=== PATIENT | male | born 1960 | race Caucasian/White ===

== ENCOUNTER 2020-02-23 12:44 | Outpatient (RCR) | payer OTHER, SELFPAY | END 2020-06-14 15:14 | disposition home or self-care (01) | LOC: HO.WCC 12:44 | PROVIDERS: Visit Provider Surgery | DX: E11.621 Type 2 diabetes mellitus with foot ulcer (principal); E11.52 Type 2 diabetes mellitus with diabetic peripheral angiopathy with gangrene; L97.523 Non-pressure chronic ulcer of other part of left foot with necrosis of muscle; M86.272 Subacute osteomyelitis, left ankle and foot; F17.210 Nicotine dependence, cigarettes, uncomplicated; Z71.6 Tobacco abuse counseling; Z79.2 Long term (current) use of antibiotics | CPT/HCPCS: 11042; 87071; 87077; 87147; 87186; 87205; 99212; 99213; 99214 ==

== ENCOUNTER 2020-03-06 16:14 | Outpatient (REF) | payer OTHER, SELFPAY ==
--- NOTE | 2020-03-06 16:36 | XR_ITS ---
EXAMINATION: XR FOOT, LEFT CLINICAL INFORMATION: Question lateral bony involvement COMPARISON: None TECHNIQUE: AP, lateral, and oblique views of the left foot. FINDINGS: There is no evidence of acute fracture or dislocation of the left foot. Bandages is seen overlying the region of the fifth metatarsophalangeal joint. No definite cortical erosion is appreciated. Joint spaces maintained. No gas within the soft tissues. IMPRESSION: No definite bony abnormality of the left foot.
[2020-03-06 16:50] LABS: MANUAL DIFF FLAG NO
[2020-03-06 16:55] LABS: Basophils Percent Auto 0.4 % (0-2); Eosinophils Percent Auto 0.3 % (0-4); Hematocrit 45.6 % (42-52); Hemoglobin 15.8 g/dl (14.0-18.0); Imm Gran Abs Auto 0.05 X10*3/uL (0.00-0.03); Imm Gran Pct Auto 0.4 % (0.0-0.4); Lymphocytes Absolute Auto 1.5 X10*3/uL (1.2-4.9); Lymphocytes Percent Auto 13.4 % (20-40); Mean Corpuscular HGB Conc 34.6 g/dl (31.0-36.0); Mean Corpuscular Hemoglobin 33.5 pg (27.0-33.0); Mean Corpuscular Volume 96.8 fL (80-98); Mean Platelet Volume 10.9 fL (9.4-12.4); Monocytes Absolute Auto 0.9 X10*3/uL (0.1-1.2); Monocytes Percent Auto 7.8 % (2-11); Neutrophils Absolute Auto 8.8 X10*3/uL (2.0-8.3); Neutrophils Percent Auto 77.7 % (45-73); Platelet Count 150 X10*3/uL (160-400); Red Blood Count 4.71 X10*6/uL (4.60-5.80); White Blood Count 11.4 X10*3/uL (4.8-10.8)
[2020-03-06 17:07] LABS: Estimated Average Glucose 197 mg/dL; Hemoglobin A1c % 8.5 %
== END 2020-03-06 16:15 | disposition home or self-care (01) ==
LOC: HO.LAB 16:14
PROVIDERS: Visit Provider Physician Assistant Surgical
DX: E11.621 Type 2 diabetes mellitus with foot ulcer (principal); L97.529 Non-pressure chronic ulcer of other part of left foot with unspecified severity
CPT/HCPCS: 36415; 73630; 83036; 85025; 87071; 87147; 87186; 87205

== ENCOUNTER 2020-04-19 14:18 | Outpatient (REF) | payer OTHER, SELFPAY ==
--- NOTE | 2020-04-19 15:01 | MR_ITS ---
EXAMINATION: MR FOOT WITHOUT AND WITH CONTRAST, LEFT CLINICAL INFORMATION: Non-healing diabetic foot ulcer, ? Osteomyelitis COMPARISON: 03/06/2020 (radiographs) TECHNIQUE: Multiplanar MR imaging was obtained through the left foot on a 1.5 Marielle magnet before and after intravenous administration of 10 mL of Gadavist intravenous contrast material. FINDINGS: At the lateral margin of the 5th metatarsal head, the marrow is edematous with lateral endosteal enhancement and loss of T1 signal (images 26/44 of series 7 and series 9), consistent with osteomyelitis. A small overlying wound is present in the overlying soft tissues with a skin defect, soft tissue swelling, and peripheral enhancement extending to the depth of bone. No fluid collections are identified. There is also edema signal and enhancement at the base of the 5th toe proximal phalanx without significant loss of T1 signal intensity, likely reactive in nature. Very early osteomyelitis cannot be completely excluded. No significant joint effusion of the 5th MTP joint. No significant findings of septic arthritis. No additional areas of osteomyelitis are identified in the foot. 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 Abnormal increased T2 signal is present within the intrinsic foot musculature with associated fatty replacement as can be seen with neuropathy related to underlying diabetes. Tendons appear intact without tears. There is tenosynovitis of the flexor hallucis longus at the level of the mass knot of [place] Angel. MR/MR foot LT wo/w con IMPRESSION: A soft tissue wound at the lateral aspect of the forefoot with underlying osteomyelitis at the 5th metatarsal head. Signal changes within the 5th toe proximal phalangeal base are likely reactive in nature, though very early osteomyelitis in this region is possible as well. No abscess.
[2020-04-19 15:06] LABS: Blood Urea Nitrogen 9 mg/dL (9-16); Estimated Glomerular Filt Rate > 60
== END 2020-04-19 14:19 | disposition home or self-care (01) ==
LOC: HO.MRI 14:18
PROVIDERS: Visit Provider Surgery
DX: E11.621 Type 2 diabetes mellitus with foot ulcer (principal); L97.529 Non-pressure chronic ulcer of other part of left foot with unspecified severity
CPT/HCPCS: 73720; 82565; 84520; A9585

== ENCOUNTER → 2020-05-01 11:14 | Outpatient (BNVA) | payer OTHER, SELFPAY | PROVIDERS: Visit Provider Internal Medicine | DX: Z76.89 Persons encountering health services in other specified circumstances (principal) ==

== ENCOUNTER → 2020-05-15 13:09 | Outpatient (BNVA) | payer OTHER, SELFPAY | PROVIDERS: Visit Provider Internal Medicine | DX: Z76.89 Persons encountering health services in other specified circumstances (principal) ==

== ENCOUNTER 2020-06-07 17:57 | Inpatient (IN) | payer OTHER, SELFPAY ==
[2020-06-07 18:00] VITALS: BP 132/66; PULSE 100; RESP 18; TEMP 37.5; O2SAT 95
--- NOTE | 2020-06-07 19:22 | XR_ITS ---
EXAMINATION: XR FOOT, LEFT CLINICAL INFORMATION: Evaluate for osteomyelitis COMPARISON: 03/06/2020 TECHNIQUE: AP, lateral, and oblique views of the left foot. FINDINGS: There is loss of bony integrity with erosion involving the distal fifth metatarsal and likely adjacent phalanx. Certainly osteomyelitis needs to be considered here. There is an overlying skin ulceration likely. No other convincing area of bony erosion. XR/XR foot LT min 3V IMPRESSION: Bone loss of the distal fifth metatarsal and adjacent phalanx. May well be consistent with osteomyelitis given the history. Recommend MR to fully evaluate
--- NOTE | 2020-06-07 19:38 | ED_ITS ---
HPI - General Adult General Chief complaint: Wound/Laceration <Felisha Kessler NP - Last Filed: 06/07/20 22:36> Stated complaint: foot pain, no known injury <Felisha Kessler NP - Last Filed: 06/07/20 22:36> Time Seen by Provider: 06/07/20 19:15 <Felisha Kessler NP - Last Filed: 06/07/20 22:36> Source: patient <Felisha Kessler NP - Last Filed: 06/07/20 22:36> Mode of arrival: ambulatory <Felisha Kessler NP - Last Filed: 06/07/20 22:36> Limitations: no limitations <Felisha Kessler NP - Last Filed: 06/07/20 22:36> History of Present Illness HPI narrative: 59-year-old male with a past medical history of xoo-stbvzzo-otlzfyett diabetes, chronic left wound infection here with left foot redness, swelling and wound noted. Patient tells me he has chronic wound on the left foot and has had osteomyelitis noted on his last MRI 04/19/2020. He completed a 2 week course of linezolid the 1st week of May. He tells me over the last 2 weeks he has had worsening pain, swelling and redness. Tells me [facility] and referred to the emergency department for IV antibiotics and admission. No fevers or chills. <Felisha Kessler NP - Last Filed: 06/07/20 22:36> Related Data Home medications: Home Medications Medication Instructions Recorded Confirmed clopidogrel 75 mg tablet 75 mg PO DAILY 05/15/20 06/07/20 aspirin 81 mg PO BEDTIME 06/07/20 06/07/20 metformin 500 mg PO BID 06/07/20 06/07/20 Previous Rx's Medication Instructions Recorded amoxicillin-pot clavulanate 875 mg PO Q12H #20 tab 06/14/20 blood sugar diagnostic #100 ea 06/14/20 doxycycline hyclate 100 mg PO Q12H #20 tab 06/14/20 insulin glargine [Lantus U-100 12 unit SUBCUT BEDTIME 30 Days #30 06/14/20 Insulin] ml insulin lispro See Protocol SUBCUT USEASDIRECTD 06/14/20 #10 ml insulin lispro [Humalog U-100 See Protocol SUBCUT QIDACHS 30 06/14/20 Insulin] Days ml insulin syr/ndl U100 half mariann #100 ea 06/14/20 nicotine 1 patch TRANSDERMAL DAILY #14 ea 06/14/20 <Felisha Kessler NP - Last Filed: 06/07/20 22:36> Allergies/adverse reactions: Allergies Allergy/AdvReac Type Severity Reaction Status Date / Time No Known Allergies Allergy Verified 06/07/20 19:22 <Felisha Kessler NP - Last Filed: 06/07/20 22:36> Review of Systems Review of Systems: Yes all other systems are reviewed and are negative <Felisha Kessler NP - Last Filed: 06/07/20 22:36> Constitutional: Constitutional: Reports no additional constitutional compl aints, Denies body ache(s), Denies chills, Denies fever(s), Denies headache(s) and Denies weakness <Felisha Kessler NP - Last Filed: 06/07/20 22:36> Eyes: Eyes: Reports no additional eye complaints and Denies change in vision <Felisha Kessler NP - Last Filed: 06/07/20 22:36> ENT: Reports system reviewed and no additional complaints, except as documented, Denies dizziness, Denies headache(s), Denies nasal congestion, Denies nasal discharge and Denies neck pain <Felisha Kessler NP - Last Filed: 06/07/20 22:36> Cardiovascular: Cardiovascular: Reports no additional cardiovascular complaints, Denies chest pain, Denies leg edema and Denies dyspnea <Felisha Kessler NP - Last Filed: 06/07/20 22:36> Respiratory: Respiratory: Reports no additional respiratory complaints, Denies cough and Denies dyspnea <Felisha Kessler NP - Last Filed: 06/07/20 22:36> Gastrointestinal: Gastrointestinal: Reports no additional gastrointestinal complaints, Denies abdominal pain, Denies diarrhea, Denies nausea and Denies vomiting <BRITTANY Mahmood Last Filed: 06/07/20 22:36> Genitourinary: Genitourinary: Denies urinary incontinence <Felisha Kessler NP - Last Filed: 06/07/20 22:36> Musculoskeletal: Musculoskeletal: Reports no additional musculoskeletal complaints, Denies back pain, Reports arthralgias, Denies joint swelling, Denies neck pain, Denies numbness and Denies tingling <Felisha Kessler NP - Last Filed: 06/07/20 22:36> Integumentary/Breasts: Skin/Breast: Reports system reviewed and no additional complaints, except as docu, Reports swelling, Reports erythema, Denies rash and Reports skin swelling <Felisha Kessler NP - Last Filed: 06/07/20 22:36> Neurologic: Reports system reviewed and no additional complaints, except as documented, Denies Abnormal speech present, Denies dizziness, Denies head ache(s), Denies numbness, Denies tingling and Denies weakness <Felisha Kessler NP - Last Filed: 06/07/20 22:36> [facility] Past Medical History Attestation statement: The following information was validated with the patient. <Felisha Kessler NP - Last Filed: 06/07/20 22:36> Source: old records reviewed and nursing notes reviewed <Felisha Kessler NP - Last Filed: 06/07/20 22:36> Medical History: Medical History (Updated 06/14/20 @ 11:56 by Guy Barboza MD) Diabetes mellitus type 2 in obese Diabetic foot infection <Felisha Kessler NP - Last Filed: 06/07/20 22:36> Social History Social History: Social History Household Members: Spouse and Children Housing: Apartment Smoking Status: Current every day smoker Tobacco Type: Cigarette Cigarettes Per Day: 10 Years Smoked: 40 Second Hand Smoke Exposure: Yes service: No Current occupational status: employed <Felisha Kessler NP - Last Filed: 06/07/20 22:36> Physical Exam Vital Signs: Vital Signs: Last Vital Signs Temp 97.9 F 06/14/20 11:56 Pulse 94 06/14/20 11:56 Resp 18 06/14/20 11:56 BP 149/68 H 06/14/20 11:56 Pulse Ox 100 06/14/20 11:56 <Felisha Kessler NP - Last Filed: 06/07/20 22:36> Vital Signs: Last Vital Signs Temp 97.9 F 06/14/20 11:56 Pulse 94 06/14/20 11:56 Resp 18 06/14/20 11:56 BP 149/68 H 06/14/20 11:56 Pulse Ox 100 06/14/20 11:56 <Adria Calvo MD - Last Filed: 06/20/20 07:24> Const: General: cooperative, healthy appearing, comfortable and no acute distress <Felisha Kessler NP - Last Filed: 06/07/20 22:36> Orientation/consciousness: patient oriented x3 <Felisha Kessler NP - Last Filed: 06/07/20 22:36> Limitations: no limitations <Felisha Kessler NP - Last Filed: 06/07/20 22:36> HENMT: Head: Yes normal to inspection <Felisha Kessler NP - Last Filed: 06/07/20 22:36> Ears: hearing grossly normal bilaterally <Felisha Kessler NP - Last Filed: 06/07/20 22:36> General nose exam: Normal external nose present <Felisha Kessler NP - Last Filed: 06/07/20 22:36> Face and sinus: Yes normal facial exam <Felisha Kessler NP - Last Filed: 06/07/20 22:36> Mouth: Normal oral and palatal mucosa present <Felisha Kessler NP - Last Filed: 06/07/20 22:36> Throat: Yes posterior oropharynx normal <Felisha Kessler NP - Last Filed: 06/07/20 22:36> Eyes: General: appearance normal, both eyes and all related structures <Felisha Kessler NP - Last Filed: 06/07/20 22:36> Pupils: Equal, round and reactive pupils present <Felisha Kessler NP - Last Filed: 06/07/20 22:36> Neck: Neck: Yes normal visual inspection <Felisha Kessler NP - Last Filed: 06/07/20 22:36> Chest: Chest palpation & inspection: normal inspection of the chest <Felisha Kessler NP - Last Filed: 06/07/20 22:36> Resp: Effort & Inspection: normal respiratory effort <Felisha Kessler NP - Last Filed: 06/07/20 22:36> Auscultation: clear to auscultation bilaterally <Felisha Kessler SEC REPORTING CONSULTANT - Last Filed: 06/07/20 22:36> Cardio: Rate: regular rate <Felisha Kessler NP - Last Filed: 06/07/20 22:36> Rhythm: regular rhythm <Felisha Kessler NP - Last Filed: 06/07/20 22:36> Peripheral pulses: Peripheral pulses 2+ throughout <Felisha Kessler NP - Last Filed: 06/07/20 22:36> GI: Inspection: Yes normal to inspection <Felisha Kessler NP - Last Filed: 06/07/20 22:36> Palpation (GI): Soft to palpation and nontender <Felisha Kessler NP - Last Filed: 06/07/20 22:36> Auscultation: normal bowel sounds <Felisha Kessler NP - Last Filed: 06/07/20 22:36> Back/Spine/Pelvis: Thoracic/Lumbar Spine: thoracic and lumbar spine normal to inspection <Felisha Kessler NP - Last Filed: 06/07/20 22:36> Skin: General skin exam: no rashes or lesions noted <Felisha Kessler NP - Last Filed: 06/07/20 22:36> Neuro: General: patient oriented x3, no focal motor deficits and normal sensation to monofilament <Felisha Kessler NP - Last Filed: 06/07/20 22:36> Cranial nerves: Yes Equal, round and reactive pupils present <Felisha Kessler NP - Last Filed: 06/07/20 22:36> Cognition (Neuro): normal cognition <BRITTANY Mahmood Last Filed: 06/07/20 22:36> Speech: No Abnormal speech present <Felisha Kessler NP - Last Filed: 06/07/20 22:36> Gait exam (Neuro): Normal gait present <Felisha Kessler NP - Last Filed: 06/07/20 22:36> Motor exam (neuro): 5/5 motor strength present throughout <Felisha Kessler NP - Last Filed: 06/07/20 22:36> Extrem: Other: To the base of the left 5th toe there is an open area. The wound bed is covered with eschar and has areas of slough. There is erythema extending over the dorsal aspect of the mid foot with swelling and tenderness. Palpable distal pulses. Patient is able to flex and extend the foot with no difficulty. <Felisha Kessler NP - Last Filed: 06/07/20 22:36> General: Yes normal to inspection <Felisha Kessler NP - Last Filed: 06/07/20 22:36> Course Course Course Narrative: 59-year-old male here with left foot wound now with redness and swelling and pain worsening over the last 2 weeks. Not currently on antibiotics. Seen at wound care today and referred to the ER for IV antibiotics and admission. Will check labs including blood cultures and lactic acid, COVID test, x-ray. 08- 04/27/20-1014 Organism 1 Enterobacter cloacae complex Quantity 4+ Organism 2 Methicillin Res Staph Aureus Quantity 4+ Organism 3 Enterococcus faecalis Quantity 3+ X-ray concerning for osteomyelitis. Previous wound culture sensitive to levaquin. At this time infection is suspected. Antibiotics ordered. Patient will need admission. 2129-discussed patient with Dr. Cano who accepted admission. <Felisha Kessler NP - Last Filed: 06/07/20 22:36> I have discussed the case and management with the [facility] <Adria Calvo MD - Last Filed: 06/20/20 07:24> Medical Decision Making Medical Records Medical records reviewed: Yes I reviewed the patient's medical records. <Felisha Kessler NP - Last Filed: 06/07/20 22:36> Lab Data Lab results reviewed: Yes I reviewed the patient's lab results. <Felisha Kessler NP - Last Filed: 06/07/20 22:36> Result diagrams: : 06/12/20 10:27 06/11/20 05:45 <Felisha Kessler NP - Last Filed: 06/07/20 22:36> Labs: Lab Results 06/07/20 06/07/20 06/07/20 Range/Units 20:15 20:15 20:16 WBC 8.2 (4.8-10.8) X10*3/uL RBC 3.78 L (4.60-5.80) X10*6/uL Hgb 12.7 L (14.0-18.0) g/dl Hct 36.7 L (42-52) % MCV 97.1 (80-98) fL MCH 33.6 H (27.0-33.0) pg MCHC 34.6 (31.0-36.0) g/dl RDW 15.5 (11.0-16.0) % Plt Count 193 D (160-400) X10*3/uL MPV 10.0 (9.4-12.4) fL Immature Gran % (Auto) 0.4 (0.0-0.4) % Neut % (Auto) 67.6 (45-73) % Lymph % (Auto) 20.1 (20-40) % [place] % (Auto) 11.0 (2-11) % Eos % (Auto) 0.7 (0-4) % Baso % (Auto) 0.2 (0-2) % Lymph # (Auto) 1.7 (1.2-4.9) X10*3/uL [place] # (Auto) 0.9 (0.1-1.2) X10*3/uL Eos # (Auto) 0.1 (0.0-0.4) X10*3/uL Baso # (Auto) 0.0 (0.0-0.2) X10*3/uL Abs Immat Gran (auto) 0.03 (0.00-0.03) X10*3/uL Absolute Neuts (auto) 5.5 (2.0-8.3) X10*3/uL Absolute Nucleated RBC 0.000 (0.0-0.012) X10*3/uL Nucleated RBC % (auto) 0.0 (0.0-0.2) /100WBC ESR 21 H (0-15) MM/HR Sodium (135-145) mmol/L Potassium (3.3-5.1) mmol/l Chloride (96-108) mmol/L Carbon Dioxide (22-29) mmol/L Anion Gap (12-20) BUN (9-16) mg/dL Creatinine (0.5-1.4) mg/dL Estim Creat Clear Calc Estimated GFR Random Glucose (60-115) mg/dL Lactic Acid 0.8 (0.5-2.0) mmol/L Calcium (8.4-10.2) mg/dL C-Reactive Protein (< or = 0.50) mg/dL COVID-19 (SAM) (Negative) COVID-19 Clin Com 06/07/20 06/07/20 Range/Units 20:16 20:16 WBC (4.8-10.8) X10*3/uL RBC (4.60-5.80) X10*6/uL Hgb (14.0-18.0) g/dl Hct (42-52) % MCV (80-98) fL MCH (27.0-33.0) pg MCHC (31.0-36.0) g/dl RDW (11.0-16.0) % Plt Count (160-400) X10*3/uL MPV (9.4-12.4) fL Immature Gran % (Auto) (0.0-0.4) % Neut % (Auto) (45-73) % Lymph % (Auto) (20-40) % [place] % (Auto) (2-11) % Eos % (Auto) (0-4) % Baso % (Auto) (0-2) % Lymph # (Auto) (1.2-4.9) X10*3/uL [place] # (Auto) (0.1-1.2) X10*3/uL Eos # (Auto) (0.0-0.4) X10*3/uL Baso # (Auto) (0.0-0.2) X10*3/uL Abs Immat Gran (auto) (0.00-0.03) X10*3/uL Absolute Neuts (auto) (2.0-8.3) X10*3/uL Absolute Nucleated RBC (0.0-0.012) X10*3/uL Nucleated RBC % (auto) (0.0-0.2) /100WBC ESR (0-15) MM/HR Sodium 134 L (135-145) mmol/L Potassium 4.4 (3.3-5.1) mmol/l Chloride 98 (96-108) mmol/L Carbon Dioxide 28 (22-29) mmol/L Anion Gap 12 (12-20) BUN 14 D (9-16) mg/dL Creatinine 0.84 (0.5-1.4) mg/dL Estim Creat Clear Calc TNP Estimated GFR > 60 Random Glucose 203 H (60-115) mg/dL Lactic Acid (0.5-2.0) mmol/L Calcium 8.4 (8.4-10.2) mg/dL C-Reactive Protein 3.45 H (< or = 0.50) mg/dL COVID-19 (SAM) Negative (Negative) COVID-19 Clin Com See Note <Felisha Kessler, SEC REPORTING CONSULTANT - Last Filed: 06/07/20 22:36> Lab Results 06/07/20 06/07/20 06/07/20 Range/Units 20:15 20:15 20:16 WBC 8.2 (4.8-10.8) X10*3/uL RBC 3.78 L (4.60-5.80) X10*6/uL Hgb 12.7 L (14.0-18.0) g/dl Hct 36.7 L (42-52) % MCV 97.1 (80-98) fL MCH 33.6 H (27.0-33.0) pg MCHC 34.6 (31.0-36.0) g/dl RDW 15.5 (11.0-16.0) % Plt Count 193 D (160-400) X10*3/uL MPV 10.0 (9.4-12.4) fL Immature Gran % (Auto) 0.4 (0.0-0.4) % Neut % (Auto) 67.6 (45-73) % Lymph % (Auto) 20.1 (20-40) % [place] % (Auto) 11.0 (2-11) % Eos % (Auto) 0.7 (0-4) % Baso % (Auto) 0.2 (0-2) % Lymph # (Auto) 1.7 (1.2-4.9) X10*3/uL [place] # (Auto) 0.9 (0.1-1.2) X10*3/uL Eos # (Auto) 0.1 (0.0-0.4) X10*3/uL Baso # (Auto) 0.0 (0.0-0.2) X10*3/uL Abs Immat Gran (auto) 0.03 (0.00-0.03) X10*3/uL Absolute Neuts (auto) 5.5 (2.0-8.3) X10*3/uL Absolute Nucleated RBC 0.000 (0.0-0.012) X10*3/uL Nucleated RBC % (auto) 0.0 (0.0-0.2) /100WBC ESR 21 H (0-15) MM/HR Sodium (135-145) mmol/L Potassium (3.3-5.1) mmol/l Chloride (96-108) mmol/L Carbon Dioxide (22-29) mmol/L Anion Gap (12-20) BUN (9-16) mg/dL Creatinine (0.5-1.4) mg/dL Estim Creat Clear Calc Estimated GFR Random Glucose (60-115) mg/dL Lactic Acid 0.8 (0.5-2.0) mmol/L Calcium (8.4-10.2) mg/dL C-Reactive Protein (< or = 0.50) mg/dL COVID-19 (SAM) (Negative) COVID-19 Clin Com 06/07/20 06/07/20 Range/Units 20:16 20:16 WBC (4.8-10.8) X10*3/uL RBC (4.60-5.80) X10*6/uL Hgb (14.0-18.0) g/dl Hct (42-52) % MCV (80-98) fL MCH (27.0-33.0) pg MCHC (31.0-36.0) g/dl RDW (11.0-16.0) % Plt Count (160-400) X10*3/uL MPV (9.4-12.4) fL Immature Gran % (Auto) (0.0-0.4) % Neut % (Auto) (45-73) % Lymph % (Auto) (20-40) % [place] % (Auto) (2-11) % Eos % (Auto) (0-4) % Baso % (Auto) (0-2) % Lymph # (Auto) (1.2-4.9) X10*3/uL [place] # (Auto) (0.1-1.2) X10*3/uL Eos # (Auto) (0.0-0.4) X10*3/uL Baso # (Auto) (0.0-0.2) X10*3/uL Abs Immat Gran (auto) (0.00-0.03) X10*3/uL Absolute Neuts (auto) (2.0-8.3) X10*3/uL Absolute Nucleated RBC (0.0-0.012) X10*3/uL Nucleated RBC % (auto) (0.0-0.2) /100WBC ESR (0-15) MM/HR Sodium 134 L (135-145) mmol/L Potassium 4.4 (3.3-5.1) mmol/l Chloride 98 (96-108) mmol/L Carbon Dioxide 28 (22-29) mmol/L Anion Gap 12 (12-20) BUN 14 D (9-16) mg/dL Creatinine 0.84 (0.5-1.4) mg/dL Estim Creat Clear Calc TNP Estimated GFR > 60 Random Glucose 203 H (60-115) mg/dL Lactic Acid (0.5-2.0) mmol/L Calcium 8.4 (8.4-10.2) mg/dL C-Reactive Protein 3.45 H (< or = 0.50) mg/dL COVID-19 (SAM) Negative (Negative) COVID-19 Clin Com See Note <Adria Calvo MD - Last Filed: 06/20/20 07:24> Imaging Data foot xray: Attestation: I personally reviewed and interpreted this imaging study as follows: <Felisha Kessler NP - Last Filed: 06/07/20 22:36> Radiologist's impression: EXAMINATION: XR FOOT, LEFT CLINICAL INFORMATION: Evaluate for osteomyelitis COMPARISON: 03/06/2020 TECHNIQUE: AP, lateral, and oblique views of the left foot. FINDINGS: There is loss of bony integrity with erosion involving the distal fifth metatarsal and likely adjacent phalanx. Certainly osteomyelitis needs to be considered here. There is an overlying skin ulceration likely. No other convincing area of bony erosion. XR/XR foot LT min 3V IMPRESSION: Bone loss of the distal fifth metatarsal and adjacent phalanx. May well be consistent with osteomyelitis given the history. Recommend MR to fully evaluate <Felisha Kessler NP - Last Filed: 06/07/20 22:36> Discharge Plan Discharge Clinical Impression: Diabetic foot infection <Felisha Kessler NP - Last Filed: 06/07/20 22:36> Patient Disposition: Admitted As Inpatient <Felisha Kessler NP - Last Filed: 06/07/20 22:36> Interventions: Admission Worksheet (ED) Last Done: 06/08/20 01:11 <Felisha Kessler NP - Last Filed: 06/07/20 22:36> Discharge Date/Time: 06/08/20 01:15 <Felisha Kessler NP - Last Filed: 06/07/20 22:36>
[2020-06-07 20:00] VITALS: BP 148/74; PULSE 95; RESP 17; TEMP 37.1; O2SAT 100
[2020-06-07] MEDS: levoFLOXacin/D5W 750 MG/150 ML PIGGYBACK 100 MG IV (20:20)
[2020-06-07 20:30] LABS: MANUAL DIFF FLAG NO
[2020-06-07 20:33] LABS: Basophils Percent Auto 0.2 % (0-2); Eosinophils Absolute Auto 0.1 X10*3/uL (0.0-0.4); Eosinophils Percent Auto 0.7 % (0-4); Hematocrit 36.7 % (42-52); Hemoglobin 12.7 g/dl (14.0-18.0); Imm Gran Abs Auto 0.03 X10*3/uL (0.00-0.03); Imm Gran Pct Auto 0.4 % (0.0-0.4); Lymphocytes Absolute Auto 1.7 X10*3/uL (1.2-4.9); Lymphocytes Percent Auto 20.1 % (20-40); Mean Corpuscular HGB Conc 34.6 g/dl (31.0-36.0); Mean Corpuscular Hemoglobin 33.6 pg (27.0-33.0); Mean Corpuscular Volume 97.1 fL (80-98); Monocytes Absolute Auto 0.9 X10*3/uL (0.1-1.2); Neutrophils Absolute Auto 5.5 X10*3/uL (2.0-8.3); Neutrophils Percent Auto 67.6 % (45-73); Platelet Count 193 X10*3/uL (160-400); Red Blood Count 3.78 X10*6/uL (4.60-5.80); Red Cell Distribution Width 15.5 % (11.0-16.0); White Blood Count 8.2 X10*3/uL (4.8-10.8)
[2020-06-07 20:45] LABS: Lactic Acid 0.8 mmol/L (0.5-2.0)
[2020-06-07 20:46] LABS: COVID-19 Test Negative (Negative)
[2020-06-07 20:49] LABS: Anion Gap 12 (12-20); Blood Urea Nitrogen 14 mg/dL (9-16); Calcium 8.4 mg/dL (8.4-10.2); Carbon Dioxide 28 mmol/L (22-29); Chloride 98 mmol/L (96-108); Estimated Glomerular Filt Rate > 60; Glucose Random 203 mg/dL (60-115); Potassium 4.4 mmol/l (3.3-5.1); Sodium 134 mmol/L (135-145)
[2020-06-07 21:07] LABS: C Reactive Protein 3.45 mg/dL (< or = 0.50)
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
[2020-06-07 21:52] LABS: Erythrocyte Sedimentation Rate 21 MM/HR (0-15)
[2020-06-07 21:57] VITALS: BP 124/71; PULSE 99; RESP 17; TEMP 37.2; O2SAT 100
[2020-06-07 22:03] LABS: Glucose, Whole Blood 219 mg/dL (60-115)
[2020-06-07] MEDS: vancomycin HCL 1,000 MG in 0.9 % Sodium Chloride 250 ML 270 MG IV (22:16)
[2020-06-07] MEDS: Enoxaparin Sodium 40 MG/0.4 ML SYRINGE SUBCUT (22:17)
--- NOTE | 2020-06-07 22:19 | PC.NURSE ---
VANCO UP AND RUNNING ON PUMP PER EMAR.
[2020-06-08] VITALS (7 sets, daily range): BP systolic 105–139; BP diastolic 55–73; PULSE 63–100; RESP 15–18; TEMP 36.1–36.9; O2SAT 96–100
--- NOTE | 2020-06-08 | US_ITS ---
EXAMINATION: ULTRASOUND ARTERIAL DUPLEX LOWER EXTREMITY BILATERAL WITH DANIAL CLINICAL INFORMATION: Nonhealing ulcer. COMPARISON: None TECHNIQUE: Multiple 2D grayscale and duplex Doppler ultrasound images of the arterial system of the bilateral lower extremities were obtained. FINDINGS: Duplex Doppler interrogation of the bilateral lower extremities showed normal tri and biphasic arterial waveforms. Arterial peak systolic velocities are as follows: Right: Common femoral: 145 cm/sec Profunda femoral: 155 cm/sec Superficial femoral proximal: 130 cm/sec Superficial femoral mid: 73 cm/sec. Superficial femoral distal: 198 cm/sec Popliteal: 163 cm/sec. Anterior tibial: 66 cm/sec Peroneal: 120 cm/sec Posterior tibial (prox/distal): 19/27cm/sec Right DANIAL: Posterior tibial: 0.94, dorsalis pedis: 0.87 Left: Common femoral: 182 cm/sec Profunda femoral: 121 cm/sec Superficial femoral proximal: 148 cm/sec Superficial femoral mid: 153 cm/sec. Superficial femoral distal: 181 cm/sec, stent in place. Popliteal: 175 cm/sec, stent in place. Anterior tibial: Not interrogated. Peroneal: 119 cm/sec Posterior tibial (prox/distal): 24/79cm/sec Left DANIAL: Posterior tibial: 0.80, dorsalis pedis: 0.54 Mild to moderate echogenic atherosclerotic plaque is seen bilaterally, more pronounced distally. US/US DANIAL complete IMPRESSION: 1. No hemodynamically significant arterial stenosis bilaterally. 2. Right ankle-brachial indices in the range of mild stenosis. Left ankle-brachial indices in the range of mild to moderate stenosis.
--- NOTE | 2020-06-08 | US_ITS ---
EXAMINATION: ULTRASOUND ARTERIAL DUPLEX LOWER EXTREMITY BILATERAL WITH DANIAL CLINICAL INFORMATION: Nonhealing ulcer. COMPARISON: None TECHNIQUE: Multiple 2D grayscale and duplex Doppler ultrasound images of the arterial system of the bilateral lower extremities were obtained. FINDINGS: Duplex Doppler interrogation of the bilateral lower extremities showed normal tri and biphasic arterial waveforms. Arterial peak systolic velocities are as follows: Right: Common femoral: 145 cm/sec Profunda femoral: 155 cm/sec Superficial femoral proximal: 130 cm/sec Superficial femoral mid: 73 cm/sec. Superficial femoral distal: 198 cm/sec Popliteal: 163 cm/sec. Anterior tibial: 66 cm/sec Peroneal: 120 cm/sec Posterior tibial (prox/distal): 19/27cm/sec Right DANIAL: Posterior tibial: 0.94, dorsalis pedis: 0.87 Left: Common femoral: 182 cm/sec Profunda femoral: 121 cm/sec Superficial femoral proximal: 148 cm/sec Superficial femoral mid: 153 cm/sec. Superficial femoral distal: 181 cm/sec, stent in place. Popliteal: 175 cm/sec, stent in place. Anterior tibial: Not interrogated. Peroneal: 119 cm/sec Posterior tibial (prox/distal): 24/79cm/sec Left DANIAL: Posterior tibial: 0.80, dorsalis pedis: 0.54 Mild to moderate echogenic atherosclerotic plaque is seen bilaterally, more pronounced distally. US/US arterial duplex LE BI IMPRESSION: 1. No hemodynamically significant arterial stenosis bilaterally. 2. Right ankle-brachial indices in the range of mild stenosis. Left ankle-brachial indices in the range of mild to moderate stenosis.
--- NOTE | 2020-06-08 00:14 | PC.NURSE ---
UNABLE TO GIVE REPORT AT THIS TIME.
[2020-06-08] MEDS: 0.9 % Sodium Chloride Flush 3 ML SYRINGE IVFLUSH ×4 (01:08→22:57)
[2020-06-08 05:05] LABS: MANUAL DIFF FLAG NO
[2020-06-08 05:07] LABS: Basophils Percent Auto 0.6 % (0-2); Eosinophils Absolute Auto 0.1 X10*3/uL (0.0-0.4); Eosinophils Percent Auto 1.4 % (0-4); Hematocrit 33.5 % (42-52); Hemoglobin 11.6 g/dl (14.0-18.0); Imm Gran Abs Auto 0.02 X10*3/uL (0.00-0.03); Imm Gran Pct Auto 0.3 % (0.0-0.4); Lymphocytes Absolute Auto 1.8 X10*3/uL (1.2-4.9); Lymphocytes Percent Auto 25.8 % (20-40); Mean Corpuscular HGB Conc 34.6 g/dl (31.0-36.0); Mean Corpuscular Hemoglobin 33.7 pg (27.0-33.0); Mean Corpuscular Volume 97.4 fL (80-98); Mean Platelet Volume 10.5 fL (9.4-12.4); Monocytes Absolute Auto 0.8 X10*3/uL (0.1-1.2); Monocytes Percent Auto 11.2 % (2-11); Neutrophils Absolute Auto 4.2 X10*3/uL (2.0-8.3); Neutrophils Percent Auto 60.7 % (45-73); Platelet Count 184 X10*3/uL (160-400); Red Blood Count 3.44 X10*6/uL (4.60-5.80); Red Cell Distribution Width 15.5 % (11.0-16.0)
[2020-06-08 05:46] LABS: Anion Gap 13 (12-20); Blood Urea Nitrogen 10 mg/dL (9-16); Calcium 7.8 mg/dL (8.4-10.2); Carbon Dioxide 24 mmol/L (22-29); Chloride 103 mmol/L (96-108); Estimated Glomerular Filt Rate > 60; Glucose Random 158 mg/dL (60-115); Sodium 136 mmol/L (135-145)
--- NOTE | 2020-06-08 08:17 | PM.CNGS ---
History of Present Illness Consult details Consult date: 06/08/20 Requesting physician: Diogo Cano Narrative: Cosmo Sainz is a 59-year-old male patient presenting for evaluation of a left 5th toe nonhealing ulcer. He has a history of diabetes mellitus initially developed an ulcer at the plantar surface of the left foot. He subsequently developed an ulcer in the lateral left foot over the distal metatarsal of the 5th toe which has persisted. [facility] 3 [facility]. He was determined to have a osteomyelitis of the 5th toe and started on antibiotics. He was evaluated by Infectious Disease placed on a 2 week course of oral antibiotics. The wounds apparently worsened over the past week and was sent from the [facility] to the emergency department for more aggressive treatment of the left 5th toe infection. He denies fever or chills. He also denies pain involving the 5th toe. 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 Espinoza for endovascular treatment. Review of Systems Constitutional: Constitutional: Denies headache(s) and Denies weakness ENT: Denies dizziness and Denies headache(s) Cardiovascular: Cardiovascular: Denies chest pain, Denies chest pain with activity, Denies irregular heart rhythm, Reports leg edema, Denies palpitations and Denies dyspnea Respiratory: Respiratory: Denies chest congestion, Denies cough, Denies dyspnea and Denies stridor Gastrointestinal: Gastrointestinal: Reports no additional gastrointestinal complaints Musculoskeletal: Musculoskeletal: Reports as per HPI, Denies numbness and Denies tingling Neurologic: Reports system reviewed and no additional complaints, except as documented, Denies Abnormal speech present, Denies dizziness, Denies headache(s), Denies numbness, Denies tingling and Denies weakness Endocrine: Endocrine: Denies palpitations [facility] Past Medical History Medical History Diabetes mellitus type 2 in obese Diabetic foot infection Social History Social History Household Members: Spouse and Children Housing: Apartment Do you presently have visiting nurse or other home services: No Smoking Status: Current every day smoker Tobacco Type: Cigarette Cigarettes Per Day: 10 Years Smoked: 40 Smoked in Last 30 Days: Yes Patient Interested in Nicotine Replacement: Yes Patient Given Instructions on How to Stop Smoking: No Second Hand Smoke Exposure: Yes Use of substances other than those prescribed or required for medical reasons: No Currently Displaying Signs/Symptoms of Drug Intoxication Withdrawal: No Have you been hit, kicked, punched, or otherwise hurt by someone within the past year? If so, by whom?: No Do you feel safe in your current relationship?: Yes Is there a partner from a previous relationship who is making you feel unsafe now?: No Are you made to feel afraid or neglected: No Advance Directives: No Advance Directives Information Provided: Yes Advance Directives on File: Yes Do you have thoughts of harming others: None Do you have a plan to hurt others: No Plan Recently lost weight without trying: No Meds Allergies Allergy/AdvReac Type Severity Reaction Status Date / Time No Known Allergies Allergy Verified 06/07/20 19:22 Home Medications Medication Instructions Recorded Confirmed Type clopidogrel 75 mg tablet 75 mg PO DAILY 05/15/20 06/07/20 History aspirin 81 mg PO BEDTIME 06/07/20 06/07/20 History metformin 500 mg PO BID 06/07/20 06/07/20 History Physical Exam Vital Signs: Vital Signs: Last Vital Signs Temp 98.3 F 06/08/20 07:23 Pulse 86 06/08/20 07:23 Resp 17 06/08/20 07:23 BP 124/66 06/08/20 07:23 Pulse Ox 98 06/08/20 07:23 Const: General: cooperative, healthy appearing, comfortable and no acute distress Neck: Neck: Yes normal visual inspection and Yes no JVD Resp: Effort & Inspection: normal respiratory effort, no audible wheezes, no cough, not tachypneic and no tracheal deviation Cardio: Jugular venous distension: no JVD Skin: General skin exam: no rashes or lesions noted Neuro: Speech: No Abnormal speech present Extrem: Left lower extremity: edema Details: 1+ Ankle/foot/toe images: 1. Site of ulceration lateral 2. Site of ulceration lateral left foot 3. Margin of erythema distal left foot Results Labs Result diagrams: 06/08/20 04:35 06/08/20 04:35 Labs: Abnormal lab results 06/07/20 06/07/20 06/07/20 Range/Units 20:15 20:16 20:16 RBC 3.78 L (4.60-5.80) X10*6/uL Hgb 12.7 L (14.0-18.0) g/dl Hct 36.7 L (42-52) % MCH 33.6 H (27.0-33.0) pg [place] % (Auto) (2-11) % ESR 21 H (0-15) MM/HR Sodium 134 L (135-145) mmol/L POC Glucose (60-115) mg/dL Random Glucose 203 H (60-115) mg/dL Calcium (8.4-10.2) mg/dL C-Reactive Protein 3.45 H (< or = 0.50) mg/dL 06/07/20 06/08/20 06/08/20 Range/Units 21:56 04:35 04:35 RBC 3.44 L (4.60-5.80) X10*6/uL Hgb 11.6 L (14.0-18.0) g/dl Hct 33.5 L (42-52) % MCH 33.7 H (27.0-33.0) pg [place] % (Auto) 11.2 H (2-11) % ESR (0-15) MM/HR Sodium (135-145) mmol/L POC Glucose 219 H (60-115) mg/dL Random Glucose 158 H (60-115) mg/dL Calcium 7.8 L D (8.4-10.2) mg/dL C-Reactive Protein (< or = 0.50) mg/dL Short CBC 06/07/20 06/08/20 Range/Units 20:16 04:35 WBC 8.2 7.0 (4.8-10.8) X10*3/uL Hgb 12.7 L 11.6 L (14.0-18.0) g/dl Hct 36.7 L 33.5 L (42-52) % Plt Count 193 D 184 (160-400) X10*3/uL BMP 06/07/20 06/08/20 20:16 04:35 Sodium 134 L 136 Potassium 4.4 4.0 Chloride 98 103 Carbon Dioxide 28 24 BUN 14 D 10 Creatinine 0.84 0.70 Calcium 8.4 7.8 L D All other labs normal. XR/XR foot LT min 3V IMPRESSION: Bone loss of the distal fifth metatarsal and adjacent phalanx. May well be consistent with osteomyelitis given the history. Recommend MR to fully evaluate Assessment and Plan (1) Diabetic foot infection: Problem details: foot infection enterobacter sensitive to Levaquin Foot is feeling better Status: Acute 59-year-old male patient with history of diabetes and peripheral vascular disease with a nonhealing wound of the left foot along the left lateral margin over the distal metatarsal of the 5th toe. There is excessive motion involving the 5th MP joint suggestive of osteomyelitis. Patient has an area of erythema involving the ventral surface of the left foot which appears to be resolving with the IV antibiotics. Although it may be worth trying prolonged course of IV antibiotics I am doubtful that this will improve the apparent osteomyelitis of the 5th toe and distal metatarsal head. Patient appears aware of the possibility of needing surgery/amputation and appears accepting of this fact. Patient currently on Levaquin and vancomycin. Will monitor patient's response to parental antibiotics over the next several days.
[2020-06-08] MEDS: Insulin Lispro 100 UNIT/ML 3 ML VIAL SUBCUT ×3 (08:31→21:20)
[2020-06-08 08:32] LABS: Glucose, Whole Blood 194 mg/dL (60-115)
[2020-06-08] MEDS: Clopidogrel Bisulfate 75 MG TABLET PO (08:33)
--- NOTE | 2020-06-08 09:04 | MHC.CM.PN ---
PATIENT LIVES WITH HIS / NEW HCP ([facility] [phone]) COPY IN CHART. PATIENT USES NO ASSISTIVE DEVICES, AND WORKS PROFESSOR [employer]. HE HAS BEEN VISITING THE [facility] FOR THE PAST 3.5 MONTHS. CASE MANAGEMENT FOLLOWING FOR DISCHARGE NEEDS.
--- NOTE | 2020-06-08 10:32 | PM.EVENT ---
Event Note Date of Service: 06/08/20 Event Note: Full consult dictated. Prior endovascular intervention of the left lower extremity done at outside institution. Will order noninvasive testing.
--- NOTE | 2020-06-08 10:35 | HO.PM.IMPN ---
Subjective Subjective Date of Service: 06/08/20 Interval History: Patient had an uneventful night, denies fever chills, no pain, no nausea, no vomiting patient seen by General surgery as well as vascular surgery this morning. Review of Systems General no headache, no dizziness, no fever chills. CVS no chest pain, no palpitation. Respiratory no cough, no sputum production, no respiratory distress. Gastrointestinal no nausea, no vomiting, no abdominal pain Physical Exam Vital Signs: Vital Signs: Last Vital Signs Temp 98.3 F 06/08/20 07:23 Pulse 86 06/08/20 07:23 Resp 17 06/08/20 07:23 BP 124/66 06/08/20 07:23 Pulse Ox 98 06/08/20 07:23 General patient resting comfortably in no acute distress. Neck is supple no JVD. CVS regular rate rhythm, Respiratory lungs clear to auscultation, no respiratory distress Gastrointestinal abdomen soft, nontender, bowel sounds audible Left foot open wound lateral margin of small toe , with no drainage, with redness and erythema extending towards dorsum of foot and leg Right foot with no edema Neuro nonfocal patient has good sensation both feet. Skin no rash Objective Data Current Medications Generic Name Dose Route Start Last Admin Trade Name Freq PRN Reason Stop Dose Admin Acetaminophen 650 mg 06/07/20 21:35 Acetaminophen 325 Mg Tablet PO Q6H PRN Pain, Mild (Pain Scale 1-3) Aspirin 81 mg 06/08/20 21:00 Aspirin 81 Mg Tab.Chew PO BEDTIME [facility] Clopidogrel Bisulfate 75 mg 06/08/20 09:00 06/08/20 08:33 Clopidogrel Bisulfate 75 Mg Tablet PO 75 mg DAILY JOSSUE Administration Docusate Sodium 100 mg 06/07/20 21:35 Docusate Sodium 100 Mg Capsule PO DAILY PRN Constipation Enoxaparin Sodium 40 mg 06/07/20 21:35 06/07/20 22:17 Enoxaparin Sodium 40 Mg/0.4 Ml Syringe SUBCUT 40 mg Q24H JOSSUE Administration Levofloxacin 750 mg in 150 mls @ 100 mls/hr 06/07/20 21:45 06/08/20 00:24 Levaquin IV Not Given Q24H [facility] Vancomycin HCl 1,000 mg/ 270 mls @ 270 mls/hr 06/07/20 23:00 06/08/20 00:24 Sodium Chloride IV Infused Q12H [facility] Infusion Insulin Human Lispro 0 unit 06/08/20 07:30 06/08/20 08:31 Insulin Lispro 100 Unit/Ml 3 Ml Vial SUBCUT 2 unit QIDACHS [facility] Administration Protocol Ondansetron HCl 4 mg 06/07/20 21:35 Ondansetron Hcl 4 Mg/2 Ml Vial IVPUSH Q8H PRN Nausea and Vomiting Oxycodone HCl 5 mg 06/07/20 21:35 Oxycodone Hcl Immed Release 5 Mg Tablet PO Q6H PRN Pain, Severe (Pain Scale 7-10) Pharmacy Consult 1 each 06/07/20 19:22 Consult Rx Perform Med Rec MISCELLANE ONCE PRN Consult order Pharmacy Consult 1 each 06/07/20 21:35 Consult Rx Vancomycin Dosing MISCELLANE DAILY PRN Consult order Sodium Chloride 3 ml 06/08/20 00:00 06/08/20 08:33 0.9 % Sodium Chloride Flush 3 Ml Syringe IVFLUSH 3 ml QSHIFT [facility] Administration Labs CBC & Chem 7: 06/08/20 04:35 06/08/20 04:35 Assessment and Plan (1) Diabetic foot infection: Problem details: foot infection enterobacter sensitive to Levaquin Foot is feeling better Status: Acute (2) MRSA (methicillin resistant staph aureus) culture positive: Status: Acute Assessment and Plan: 59-year-old with history of diabetes who presents to the hospital with complaints of worsening left foot wound. Of note patient was treated for this wound in April after being on antibiotics for 2 weeks. # left foot wound and cellulitis related to diabetes and peripheral vascular disease Patient with no fever chills, normal WBC count, status post treatment in April with linezolid as well as levofloxacin for 2 weeks cultures from the same wound in April showed Enterobacter Cloacea complex, MRSA, and Enterococcus faecalis MRI from showed osteomyelitis, will continue IV vancomycin and Levaquin follow blood culture report and Vanco level closely Patient seen by Dr. Masters and Dr. Ott will undergo vascular study since patient has history of peripheral vascular disease on aspirin and Plavix, and he continue to smoke. # DM type 2 blood sugar 194 continue insulin sliding scale diabetic diet and follow blood sugar closely, hemoglobin A1c 8.5 in February suggestive of poor blood sugar control # tobacco use disorder were placed on nicotine patch # DVT prophylaxis with Lovenox
[2020-06-08 12:18] LABS: Glucose, Whole Blood 215 mg/dL (60-115)
[2020-06-08] MEDS: vancomycin HCL 1,000 MG in 0.9 % Sodium Chloride 250 ML 270 MG IV (12:25)
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
[2020-06-08 16:37] LABS: Glucose, Whole Blood 130 mg/dL (60-115)
--- NOTE | 2020-06-08 20:34 | P.CNID_ITS ---
History of Present Illness Data of Consult Service Date: 06/08/20 Requesting physician: Kenzie Bray Primary Care Provider: MIRA SOTO NP HPI Reason for consult: osteomyelitis,recurrent acute on chronic He [facility] with bleeding left lateral foot wound,believed to be worsening infection as well as spread up dorsum of foot of redness He sees Vascular as well, Dr Espinoza and saw Dr Nice here I had seen him in office on 05/01 and 05/15 He had Enterobacter,MRSA and enterococcus in deep wounds He had received Linezolid and Levaquin 6-8 weeks He wished to try po antibiotics and now is frustrated at lack of healin Review of Systems Review of Systems: Yes all other systems are reviewed and are negative [facility] Past Medical History Medical History (Updated 06/22/20 @ 00:01 by Bhupendra Graves) Diabetes mellitus type 2 in obese Diabetic foot infection Family History Family history: reviewed and not pertinent Social History Social History Household Members: Spouse and Children Housing: Apartment Smoking Status: Current every day smoker Tobacco Type: Cigarette Cigarettes Per Day: 10 Years Smoked: 40 Second Hand Smoke Exposure: Yes service: No Current occupational status: employed Meds Allergies Allergy/AdvReac Type Severity Reaction Status Date / Time No Known Allergies Allergy Verified 06/07/20 19:22 Home Medications Medication Instructions Recorded Confirmed Type clopidogrel 75 mg tablet 75 mg PO DAILY 05/15/20 06/07/20 History aspirin 81 mg PO BEDTIME 06/07/20 06/07/20 History metformin 500 mg PO BID 06/07/20 06/07/20 History Physical Exam Vital Signs: Vital Signs: Last Vital Signs Temp 98.2 F 06/08/20 19:49 Pulse 100 06/08/20 19:49 Resp 16 06/08/20 19:49 BP 123/66 06/08/20 19:49 Pulse Ox 97 06/08/20 19:49 Const: General: cooperative HENMT: Head: Yes normal to inspection Mouth: Normal oral and palatal mucosa present Eyes: General: appearance normal, both eyes and all related structures Neck: Neck: Yes normal visual inspection Resp: Effort & Inspection: normal respiratory effort Cardio: Rate: regular rate Rhythm: regular rhythm GI: Palpation (GI): Soft to palpation and nontender Back/Spine/Pelvis: Cervical Spine: normal cervical lordosis Skin: General skin exam: no rashes or lesions noted Assessment and Plan (1) Diabetic foot infection: Problem details: foot infection MRSA,Enterobacter and enterococcus He is unfortunately having cellulitis and worsening foot infection He doesnt have regular transport for HBO He has failed organism directed oral therapy Status: Resolved Would continue Vancomycin IV and po Levaquin,6 weeks if patient desires Otherwise surgical intervention ? amputation (2) MRSA (methicillin resistant staph aureus) culture positive: Status: Resolved (3) Diabetes mellitus type 2 in obese: Status: Acute Results Labs CBC & Chem 7: 06/12/20 10:27 06/11/20 05:45 Labs: Short CBC 06/07/20 06/08/20 Range/Units 20:16 04:35 WBC 8.2 7.0 (4.8-10.8) X10*3/uL Hgb 12.7 L 11.6 L (14.0-18.0) g/dl Hct 36.7 L 33.5 L (42-52) % Plt Count 193 D 184 (160-400) X10*3/uL BMP 06/07/20 06/08/20 20:16 04:35 Sodium 134 L 136 Potassium 4.4 4.0 Chloride 98 103 Carbon Dioxide 28 24 BUN 14 D 10 Creatinine 0.84 0.70 Calcium 8.4 7.8 L D
[2020-06-08 20:38] LABS: Glucose, Whole Blood 275 mg/dL (60-115)
[2020-06-08] MEDS: Aspirin 81 MG TAB.CHEW PO (21:20)
[2020-06-08] MEDS: Enoxaparin Sodium 40 MG/0.4 ML SYRINGE SUBCUT (21:21)
[2020-06-08] MEDS: levoFLOXacin/D5W 750 MG/150 ML PIGGYBACK 100 MG IV (21:21)
[2020-06-09] MEDS: vancomycin HCL 1,000 MG in 0.9 % Sodium Chloride 250 ML 270 MG IV (00:09)
[2020-06-09 03:59] VITALS: BP 125/69; PULSE 82; RESP 16; TEMP 36.7; O2SAT 97
[2020-06-09 07:49] LABS: Glucose, Whole Blood 188 mg/dL (60-115)
[2020-06-09 07:55] VITALS: BP 141/70; PULSE 79; RESP 18; TEMP 37.1; O2SAT 99
[2020-06-09] MEDS: Clopidogrel Bisulfate 75 MG TABLET PO (09:38)
[2020-06-09] MEDS: Insulin Lispro 100 UNIT/ML 3 ML VIAL SUBCUT ×4 (09:39→21:06)
[2020-06-09] MEDS: 0.9 % Sodium Chloride Flush 3 ML SYRINGE IVFLUSH ×3 (09:39→21:09)
[2020-06-09 11:34] LABS: Vancomycin Trough 7.2 mcg/mL (10.0-20.0)
[2020-06-09 11:35] VITALS: BP 141/79; PULSE 87; RESP 16; TEMP 36.9; O2SAT 99
[2020-06-09 11:38] LABS: Glucose, Whole Blood 289 mg/dL (60-115)
[2020-06-09 11:54] VITALS: BMI 28.4
--- NOTE | 2020-06-09 12:26 | P.PNGS_ITS ---
Subjective Subjective Date of Service: 06/09/20 Interval history: no new complaints some pain on left foot Physical Exam Vital Signs: Vital Signs: Last Vital Signs Temp 98.4 F 06/09/20 11:35 Pulse 87 06/09/20 11:35 Resp 16 06/09/20 11:35 BP 141/79 H 06/09/20 11:35 Pulse Ox 99 06/09/20 11:35 Body Mass Index 28.4 Chemistry 06/07/20 06/08/20 20:16 04:35 Sodium 134 L 136 Potassium 4.4 4.0 Carbon Dioxide 28 24 BUN 14 D 10 Creatinine 0.84 0.70 Calcium 8.4 7.8 L D Hematology 06/07/20 06/08/20 20:16 04:35 WBC 8.2 7.0 Hgb 12.7 L 11.6 L Plt Count 193 D 184 Const: General: comfortable and no acute distress Resp: Effort & Inspection: normal respiratory effort Cardio: Rate: regular rate GI: Palpation (GI): Soft to palpation and nontender Extrem: Other: open wound base of 5th toe left, redness of toe; ?exposed bone at base Progress Note: A&P Assessment and plan (1) Diabetic foot infection: Problem details: foot infection MRSA,Enterobacter and enterococcus He is unfortunately having cellulitis and worsening foot infection Discussed today with Dr Nice and area may have debridement/and or amputation He doesnt have regular transport for HBO He has failed organism directed oral therapy Status: Acute Assessment and Plan: dressings changed open wound with significnt soft tissue damage around base of toe possible amputation fo 5th toe on Thursday, depending on schedule as per Dr. Masters explained this to pt continue abx wound care Fall Risk Details Current Medications: Current Medications Generic Name Dose Route Start Last Admin Trade Name Freq PRN Reason Stop Dose Admin Acetaminophen 650 mg 06/07/20 21:35 Acetaminophen 325 Mg Tablet PO Q6H PRN Pain, Mild (Pain Scale 1-3) Aspirin 81 mg 06/08/20 21:00 06/08/20 21:20 Aspirin 81 Mg Tab.Chew PO 81 mg BEDTIME [facility] Administration Clopidogrel Bisulfate 75 mg 06/08/20 09:00 06/09/20 09:38 Clopidogrel Bisulfate 75 Mg Tablet PO 75 mg DAILY [facility] Administration Docusate Sodium 100 mg 06/07/20 21:35 Docusate Sodium 100 Mg Capsule PO DAILY PRN Constipation Enoxaparin Sodium 40 mg 06/07/20 21:35 06/08/20 21:21 Enoxaparin Sodium 40 Mg/0.4 Ml Syringe SUBCUT 40 mg Q24H [facility] Administration Levofloxacin 750 mg in 150 mls @ 100 mls/hr 06/07/20 21:45 06/08/20 22:56 Levaquin IV Infused Q24H [facility] Infusion Vancomycin HCl 1,500 mg/ 280 mls @ 186.667 mls/hr 06/09/20 12:00 Sodium Chloride IV Q12H [facility] Insulin Human Lispro 0 unit 06/08/20 07:30 06/09/20 09:39 Insulin Lispro 100 Unit/Ml 3 Ml Vial SUBCUT 2 unit QIDACHS [facility] Administration Protocol Nicotine 14 mg 06/08/20 16:05 06/09/20 09:38 Nicotine 14 Mg Patch.Td24 TRANSDERMA Not Given DAILY [facility] Ondansetron HCl 4 mg 06/07/20 21:35 Ondansetron Hcl 4 Mg/2 Ml Vial IVPUSH Q8H PRN Nausea and Vomiting Oxycodone HCl 5 mg 06/07/20 21:35 Oxycodone Hcl Immed Release 5 Mg Tablet PO Q6H PRN Pain, Severe (Pain Scale 7-10) Pharmacy Consult 1 each 06/07/20 19:22 Consult Rx Perform Med Rec MISCELLANE ONCE PRN Consult order Pharmacy Consult 1 each 06/07/20 21:35 Consult Rx Vancomycin Dosing MISCELLANE DAILY PRN Consult order Sodium Chloride 3 ml 06/08/20 00:00 06/09/20 09:39 0.9 % Sodium Chloride Flush 3 Ml Syringe IVFLUSH 3 ml QSHIFT [facility] Administration Time Spent With Patient Time: Total time spent is greater than 50% in coordination of care (as documented) at patient's floor/unit and/or counseling patient: Time with patient: 15 - 24 minutes
--- NOTE | 2020-06-09 13:40 | P.PNIM_ITS ---
Subjective Subjective Date of Service: 06/09/20 Interval History: Patient had an uneventful night, denies fever chills, no pain, no nausea, no vomiting patient seen by General surgery as well as vascular surgery this morning. Review of Systems General no headache, no dizziness, no fever chills. CVS no chest pain, no palpitation. Respiratory no cough, no sputum production, no respiratory distress. Gastrointestinal no nausea, no vomiting, no abdominal pain Physical Exam Vital Signs: Vital Signs: Last Vital Signs Temp 98.4 F 06/09/20 11:35 Pulse 87 06/09/20 11:35 Resp 16 06/09/20 11:35 BP 141/79 H 06/09/20 11:35 Pulse Ox 99 06/09/20 11:35 Body Mass Index 28.4 General patient resting comfortably in no acute distress. Neck is supple no JVD. CVS regular rate rhythm, Respiratory lungs clear to auscultation, no respiratory distress, no wheeze, no rhonchi. Gastrointestinal abdomen soft, nontender, bowel sounds audible, no guarding , no rigidity. Extremities left foot persistent swelling and redness but stable since yesterday, open wound lateral margin of 5th toe dry with no drainage Neuro nonfocal Psych appropriate affect Objective Data Current Medications Generic Name Dose Route Start Last Admin Trade Name Freq PRN Reason Stop Dose Admin Acetaminophen 650 mg 06/07/20 21:35 Acetaminophen 325 Mg Tablet PO Q6H PRN Pain, Mild (Pain Scale 1-3) Aspirin 81 mg 06/08/20 21:00 06/08/20 21:20 Aspirin 81 Mg Tab.Chew PO 81 mg BEDTIME [facility] Administration Clopidogrel Bisulfate 75 mg 06/08/20 09:00 06/09/20 09:38 Clopidogrel Bisulfate 75 Mg Tablet PO 75 mg DAILY [facility] Administration Docusate Sodium 100 mg 06/07/20 21:35 Docusate Sodium 100 Mg Capsule PO DAILY PRN Constipation Enoxaparin Sodium 40 mg 06/07/20 21:35 06/08/20 21:21 Enoxaparin Sodium 40 Mg/0.4 Ml Syringe SUBCUT 40 mg Q24H [facility] Administration Levofloxacin 750 mg in 150 mls @ 100 mls/hr 06/07/20 21:45 06/08/20 22:56 Levaquin IV Infused Q24H [facility] Infusion Vancomycin HCl 1,500 mg/ 280 mls @ 186.667 mls/hr 06/09/20 12:00 06/09/20 12:52 Sodium Chloride IV 186.67 mls/hr Q12H [facility] Administration Insulin Human Lispro 0 unit 06/08/20 07:30 06/09/20 12:24 Insulin Lispro 100 Unit/Ml 3 Ml Vial SUBCUT 6 unit QIDACHS [facility] Administration Protocol Nicotine 14 mg 06/08/20 16:05 06/09/20 09:38 Nicotine 14 Mg Patch.Td24 TRANSDERMA Not Given DAILY [facility] Ondansetron HCl 4 mg 06/07/20 21:35 Ondansetron Hcl 4 Mg/2 Ml Vial IVPUSH Q8H PRN Nausea and Vomiting Oxycodone HCl 5 mg 06/07/20 21:35 Oxycodone Hcl Immed Release 5 Mg Tablet PO Q6H PRN Pain, Severe (Pain Scale 7-10) Pharmacy Consult 1 each 06/07/20 19:22 Consult Rx Perform Med Rec MISCELLANE ONCE PRN Consult order Pharmacy Consult 1 each 06/07/20 21:35 Consult Rx Vancomycin Dosing MISCELLANE DAILY PRN Consult order Sodium Chloride 3 ml 06/08/20 00:00 06/09/20 09:39 0.9 % Sodium Chloride Flush 3 Ml Syringe IVFLUSH 3 ml QSHIFT [facility]CLUDES [facility] Administration Labs CBC & Chem 7: 06/08/20 04:35 06/08/20 04:35 Microbiology Microbiology Results: Microbiology 06/07/20 20:15 Blood - Venous Blood Culture - Preliminary No growth after 24 hours. 06/07/20 20:15 Blood - Venous Blood Culture - Preliminary No growth after 24 hours. Assessment and Plan (1) Diabetic foot infection: Problem details: foot infection MRSA,Enterobacter and enterococcus He is unfortunately having cellulitis and worsening foot infection Discussed today with Dr Nice and area may have debridement/and or amputation He doesnt have regular transport for HBO He has failed organism directed oral therapy Status: Acute (2) MRSA (methicillin resistant staph aureus) culture positive: Status: Acute Assessment and Plan: 59-year-old with history of diabetes who presents to the hospital with complaints of worsening left foot wound. Of note patient was treated for this wound in April after being on antibiotics for 2 weeks. # left foot wound and cellulitis related to diabetes and peripheral vascular disease Patient with no fever, chills, normal WBC count, status post treatment in April with linezolid as well as levofloxacin for 2 weeks cultures from the same wound in April showed Enterobacter Cloacea complex, MRSA, and Enterococcus faecalis MRI from showed osteomyelitis, on IV vancomycin and Levaquin day 2 blood cultures time 2 showed no growth Patient seen by ID and surgery Dr. Masters they will review the wound on Thursday and possibly patient will undergo amputation since has failed prolonged antibiotic treatment Patient seen by Dr. Ott and underwent bilateral lower extremity arterial duplex ultrasound that showed no hemodynamically significant arterial stenosis bilaterally. # history of peripheral vascular disease on aspirin and Plavix, will hold Plavix for surgery # DM type 2 blood sugar elevated take metformin 500 b.i.d. at home, will add Lantus, continue insulin sliding scale diabetic diet and follow blood sugar closely, hemoglobin A1c 8.5 in February suggestive of poor blood sugar control # tobacco use disorder were placed on nicotine patch # DVT prophylaxis with Lovenox
[2020-06-09 16:00] VITALS: BP 118/60; PULSE 81; RESP 18; TEMP 36.8; O2SAT 98
[2020-06-09 17:07] LABS: Glucose, Whole Blood 204 mg/dL (60-115)
[2020-06-09 19:24] VITALS: BP 132/78; PULSE 87; RESP 20; TEMP 36.9; O2SAT 98
[2020-06-09 20:39] LABS: Glucose, Whole Blood 215 mg/dL (60-115)
[2020-06-09] MEDS: Insulin Glargine,Hum.rec.anlog 100 UNIT/ML 10 ML VIAL 12 UNIT SUBCUT (21:06)
[2020-06-09] MEDS: Aspirin 81 MG TAB.CHEW PO (21:08)
[2020-06-09] MEDS: levoFLOXacin/D5W 750 MG/150 ML PIGGYBACK 100 MG IV (21:09)
[2020-06-09] MEDS: Enoxaparin Sodium 40 MG/0.4 ML SYRINGE SUBCUT (21:09)
[2020-06-10] VITALS (8 sets, daily range): BP systolic 123–135; BP diastolic 63–74; PULSE 74–88; RESP 0–20; TEMP 36.4–36.8; O2SAT 96–99
[2020-06-10 08:11] LABS: Anion Gap 12 (12-20); Blood Urea Nitrogen 8 mg/dL (9-16); Calcium 8.1 mg/dL (8.4-10.2); Carbon Dioxide 27 mmol/L (22-29); Chloride 103 mmol/L (96-108); Estimated Glomerular Filt Rate > 60; Glucose Random 130 mg/dL (60-115); Potassium 4.3 mmol/l (3.3-5.1); Sodium 138 mmol/L (135-145)
[2020-06-10 08:27] LABS: Glucose, Whole Blood 144 mg/dL (60-115)
--- NOTE | 2020-06-10 08:31 | P.PNIM_ITS ---
Subjective Subjective Date of Service: 06/10/20 Interval History: Patient concern what if infection reoccurs after amputation, complain of some left foot discomfort otherwise no fever, chills , no other acute issues overnight. Review of Systems General no headache, no dizziness, no fever chills. CVS no chest pain, no palpitation. Respiratory no cough, no sputum production, no respiratory distress. Gastrointestinal no nausea, no vomiting, no abdominal pain Physical Exam Vital Signs: Vital Signs: Last Vital Signs Temp 97.5 F 06/10/20 07:09 Pulse 80 06/10/20 07:09 Resp 18 06/10/20 07:09 BP 132/70 06/10/20 07:09 Pulse Ox 96 06/10/20 07:09 Body Mass Index 28.4 General patient resting comfortably in no acute distress. Neck is supple no JVD. CVS regular rate rhythm, Respiratory lungs clear to auscultation, coarse breath sound at bases, no respiratory distress, no wheeze, no rhonchi. Gastrointestinal abdomen soft, nontender, bowel sounds audible, no guarding , no rigidity. Extremities left foot significant improvement in redness and swelling of leg and dorsum of foot, open wound lateral margin of 5th toe dry with no drainage Neuro nonfocal Psych appropriate affect Objective Data Current Medications Generic Name Dose Route Start Last Admin Trade Name Freq PRN Reason Stop Dose Admin Acetaminophen 650 mg 06/07/20 21:35 Acetaminophen 325 Mg Tablet PO Q6H PRN Pain, Mild (Pain Scale 1-3) Aspirin 81 mg 06/08/20 21:00 06/09/20 21:08 Aspirin 81 Mg Tab.Chew PO 81 mg BEDTIME [facility] Administration Clopidogrel Bisulfate 75 mg 06/08/20 09:00 06/09/20 09:38 Clopidogrel Bisulfate 75 Mg Tablet PO 75 mg DAILY [facility] Administration Docusate Sodium 100 mg 06/07/20 21:35 Docusate Sodium 100 Mg Capsule PO DAILY PRN Constipation Enoxaparin Sodium 40 mg 06/07/20 21:35 06/09/20 21:09 Enoxaparin Sodium 40 Mg/0.4 Ml Syringe SUBCUT 40 mg Q24H [facility] Administration Levofloxacin 750 mg in 150 mls @ 100 mls/hr 06/07/20 21:45 06/09/20 22:35 Levaquin IV Infused Q24H [facility] Infusion Vancomycin HCl 1,500 mg/ 280 mls @ 186.667 mls/hr 06/09/20 12:00 06/10/20 03:00 Sodium Chloride IV Infused Q12H [facility] Infusion Insulin Glargine 12 unit 06/09/20 21:00 06/09/20 21:06 Insulin Glargine,Hum.Rec.Anlog 100 Unit/Ml 10 Ml Vial SUBCUT 12 unit BEDTIME [facility] Administration Insulin Human Lispro 0 unit 06/08/20 07:30 06/10/20 07:58 Insulin Lispro 100 Unit/Ml 3 Ml Vial SUBCUT Not Given QIDACHS [facility] Protocol Nicotine 14 mg 06/08/20 16:05 06/09/20 09:38 Nicotine 14 Mg Patch.Td24 TRANSDERMA Not Given DAILY [facility] Ondansetron HCl 4 mg 06/07/20 21:35 Ondansetron Hcl 4 Mg/2 Ml Vial IVPUSH Q8H PRN Nausea and Vomiting Oxycodone HCl 5 mg 06/07/20 21:35 Oxycodone Hcl Immed Release 5 Mg Tablet PO Q6H PRN Pain, Severe (Pain Scale 7-10) Pharmacy Consult 1 each 06/07/20 19:22 Consult Rx Perform Med Rec MISCELLANE ONCE PRN Consult order Pharmacy Consult 1 each 06/07/20 21:35 Consult Rx Vancomycin Dosing MISCELLANE DAILY PRN Consult order Sodium Chloride 3 ml 06/08/20 00:00 06/09/20 21:09 0.9 % Sodium Chloride Flush 3 Ml Syringe IVFLUSH 3 ml QSHIFT [facility] Administration Labs CBC & Chem 7: 06/08/20 04:35 06/10/20 06:58 Microbiology Microbiology Results: Microbiology 06/07/20 20:15 Blood - Venous Blood Culture - Preliminary No growth after 48 hours. 06/07/20 20:15 Blood - Venous Blood Culture - Preliminary No growth after 48 hours. Assessment and Plan (1) MRSA (methicillin resistant staph aureus) culture positive: Status: Acute (2) Diabetic foot infection: Problem details: foot infection MRSA,Enterobacter and enterococcus He is unfortunately having cellulitis and worsening foot infection Discussed today with Dr Nice and area may have debridement/and or amputation He doesnt have regular transport for HBO He has failed organism directed oral therapy Status: Acute (3) Tobacco use disorder: Status: Acute Assessment and Plan: 59-year-old with history of diabetes who presents to the hospital with complaints of worsening left foot wound. Of note patient was treated for this wound in April after being on antibiotics for 2 weeks. # left foot wound and cellulitis related to diabetes and peripheral vascular disease No acute complaints, mild discomfort left foot, no fever, chills, normal WBC count, status post treatment in April with linezolid as well as levofloxacin for 2 weeks cultures from the same wound in April showed Enterobacter Cloacea complex, MRSA, and Enterococcus faecalis MRI from April 21 showed osteomyelitis, on IV vancomycin and Levaquin day 3 dose of vancomycin adjusted due to low trough, blood cultures time 2 showed no growth Patient seen by ID and surgery Dr. Masters they will review the wound on Thursday and possibly patient will undergo amputation since has failed prolonged antibiotic treatment as outpatient. Patient seen by Dr. Ott and underwent bilateral lower extremity arterial duplex ultrasound that showed no hemodynamically significant arterial stenosis bilaterally. # history of peripheral vascular disease on aspirin and Plavix, will hold Plavix for surgery # DM type 2 blood sugar improving with addition of Lantus, take metformin 500 b.i.d. at home, continue insulin sliding scale diabetic diet and follow blood sugar closely, hemoglobin A1c 8.5 in February suggestive of poor blood sugar control # tobacco use disorder placed on nicotine patch # DVT prophylaxis with Lovenox
[2020-06-10] MEDS: 0.9 % Sodium Chloride Flush 3 ML SYRINGE IVFLUSH ×2 (10:22→14:20)
--- NOTE | 2020-06-10 11:02 | PM.PNGS ---
Subjective Subjective Date of Service: 06/10/20 Interval history: c/o pain on left foot otherwise no new complaints Physical Exam Vital Signs: Vital Signs: Last Vital Signs Temp 97.5 F 06/10/20 07:09 Pulse 80 06/10/20 07:09 Resp 18 06/10/20 07:09 BP 132/70 06/10/20 07:09 Pulse Ox 96 06/10/20 07:09 Body Mass Index 28.4 Const: General: comfortable and no acute distress Resp: Effort & Inspection: normal respiratory effort Extrem: Other: open wound left foot on base of 5th toe, toe flopping due to soft tissue damage from infection, draining Progress Note: A&P Assessment and plan (1) Diabetic foot infection: Problem details: foot infection MRSA,Enterobacter and enterococcus He is unfortunately having cellulitis and worsening foot infection Discussed today with Dr Nice and area may have debridement/and or amputation He doesnt have regular transport for HBO He has failed organism directed oral therapy Status: Acute Assessment and Plan: dressings changed Alginate applied will benefit from toe amp - with Dr. Masters possibly tomorrow NPO post [place] pt aware of plan Fall Risk Details Current Medications: Current Medications Generic Name Dose Route Start Last Admin Trade Name Freq PRN Reason Stop Dose Admin Acetaminophen 650 mg 06/07/20 21:35 Acetaminophen 325 Mg Tablet PO Q6H PRN Pain, Mild (Pain Scale 1-3) Aspirin 81 mg 06/08/20 21:00 06/09/20 21:08 Aspirin 81 Mg Tab.Chew PO 81 mg BEDTIME [facility] Administration Docusate Sodium 100 mg 06/07/20 21:35 Docusate Sodium 100 Mg Capsule PO DAILY PRN Constipation Enoxaparin Sodium 40 mg 06/07/20 21:35 06/09/20 21:09 Enoxaparin Sodium 40 Mg/0.4 Ml Syringe SUBCUT 40 mg Q24H [facility] Administration Levofloxacin 750 mg in 150 mls @ 100 mls/hr 06/07/20 21:45 06/09/20 22:35 Levaquin IV Infused Q24H [facility] Infusion Vancomycin HCl 1,500 mg/ 280 mls @ 186.667 mls/hr 06/09/20 12:00 06/10/20 03:00 Sodium Chloride IV Infused Q12H [facility] Infusion Insulin Glargine 12 unit 06/09/20 21:00 06/09/20 21:06 Insulin Glargine,Hum.Rec.Anlog 100 Unit/Ml 10 Ml Vial SUBCUT 12 unit BEDTIME [facility] Administration Insulin Human Lispro 0 unit 06/08/20 07:30 06/10/20 07:58 Insulin Lispro 100 Unit/Ml 3 Ml Vial SUBCUT Not Given QIDACHS [facility] Protocol Nicotine 14 mg 06/08/20 16:05 06/10/20 10:22 Nicotine 14 Mg Patch.Td24 TRANSDERMA Not Given DAILY [facility] Ondansetron HCl 4 mg 06/07/20 21:35 Ondansetron Hcl 4 Mg/2 Ml Vial IVPUSH Q8H PRN Nausea and Vomiting Oxycodone HCl 5 mg 06/07/20 21:35 Oxycodone Hcl Immed Release 5 Mg Tablet PO Q6H PRN Pain, Severe (Pain Scale 7-10) Pharmacy Consult 1 each 06/07/20 19:22 Consult Rx Perform Med Rec MISCELLANE ONCE PRN Consult order Pharmacy Consult 1 each 06/07/20 21:35 Consult Rx Vancomycin Dosing MISCELLANE DAILY PRN Consult order Sodium Chloride 3 ml 06/08/20 00:00 06/10/20 10:22 0.9 % Sodium Chloride Flush 3 Ml Syringe IVFLUSH 3 ml QSHIFT [facility] Administration Time Spent With Patient Time: Total time spent is greater than 50% in coordination of care (as documented) at patient's floor/unit and/or counseling patient: Time with patient: 15 - 24 minutes
[2020-06-10] MEDS: Insulin Lispro 100 UNIT/ML 3 ML VIAL SUBCUT ×3 (12:03→20:41)
[2020-06-10 12:07] LABS: Glucose, Whole Blood 215 mg/dL (60-115)
--- NOTE | 2020-06-10 15:14 | MHC.CM.PN ---
PER REVIEW OF REPORTS, PLAN IS FOR DEBRIDEMENT/POSSIBLE AMPUTATION, ON Thursday06/11/20. CASE MANAGEMENT FOLLOWING FOR DISCHARGE NEEDS.
[2020-06-10 16:16] LABS: Glucose, Whole Blood 246 mg/dL (60-115)
[2020-06-10 20:22] LABS: Glucose, Whole Blood 287 mg/dL (60-115)
[2020-06-10] MEDS: Aspirin 81 MG TAB.CHEW PO (20:38)
[2020-06-10] MEDS: Enoxaparin Sodium 40 MG/0.4 ML SYRINGE SUBCUT (20:39)
[2020-06-10] MEDS: Insulin Glargine,Hum.rec.anlog 100 UNIT/ML 10 ML VIAL 12 UNIT SUBCUT (20:40)
[2020-06-10] MEDS: levoFLOXacin/D5W 750 MG/150 ML PIGGYBACK 100 MG IV (20:42)
[2020-06-10 23:22] LABS: Vancomycin Trough 12.2 mcg/mL (10.0-20.0)
[2020-06-11] VITALS (8 sets, daily range): BP systolic 105–144; BP diastolic 58–77; PULSE 79–92; RESP 14–18; TEMP 36.3–37.3; O2SAT 96–99
[2020-06-11] MEDS: 0.9 % Sodium Chloride Flush 3 ML SYRINGE IVFLUSH ×3 (00:40→17:11)
[2020-06-11 06:47] LABS: Anion Gap 17 (12-20); Blood Urea Nitrogen 9 mg/dL (9-16); Calcium 8.5 mg/dL (8.4-10.2); Carbon Dioxide 23 mmol/L (22-29); Chloride 104 mmol/L (96-108); Creatinine Clr Calc Pharmacy 130.1; Estimated Glomerular Filt Rate > 60; Glucose Random 126 mg/dL (60-115); Potassium 4.8 mmol/l (3.3-5.1); Sodium 139 mmol/L (135-145)
[2020-06-11 07:34] LABS: Glucose, Whole Blood 174 mg/dL (60-115)
--- NOTE | 2020-06-11 08:36 | PM.PNGS ---
Subjective Subjective Date of Service: 06/11/20 Interval history: Reports some pain in the left small toe when pressure is applied. Denies any new symptoms. Physical Exam Vital Signs: Vital Signs: Last Vital Signs Temp 97.8 F 06/11/20 07:59 Pulse 89 06/11/20 07:59 Resp 16 06/11/20 07:59 BP 113/69 06/11/20 07:59 Pulse Ox 99 06/11/20 07:59 Body Mass Index 28.4 Const: General: cooperative, healthy appearing, comfortable and no acute distress Neck: Neck: Yes normal visual inspection and Yes no JVD Resp: Effort & Inspection: normal respiratory effort, no stridor and not tachypneic Cardio: Jugular venous distension: no JVD Rate: regular rate Skin: General skin exam: dry skin Rashes: no rashes Wounds: wounds noted (Left small toe open wound with purulence discharge) Extrem: Other: Left 5th toe with open wound on the lateral surface at the MP joint. No residual cellulitis is noted in the fore foot Ankle/foot/toe images: 1. Site of ulceration Progress Note: A&P Assessment and plan (1) Diabetic foot infection: Problem details: foot infection MRSA,Enterobacter and enterococcus He is unfortunately having cellulitis and worsening foot infection Discussed today with Dr Nice and area may have debridement/and or amputation He doesnt have regular transport for HBO He has failed organism directed oral therapy Status: Acute Assessment and Plan: Patient presents with a nonhealing left 5th toe wound located at the MP joint with evidence of osteomyelitis involving the proximal phalanx and distal metatarsal head. Overall the cellulitis is much improved but the ulcer continues to have some purulence discharge without obvious softening of the bone. We discussed possible amputation of the left 5th toe to remove the infected source hopefully improve the wound healing. After discussion of the procedure, risks, and alternatives, he consents to the left 5th toe amputation. He will be added onto the operative schedule for today. Fall Risk Details Current Medications: Current Medications Generic Name Dose Route Start Last Admin Trade Name Freq PRN Reason Stop Dose Admin Acetaminophen 650 mg 06/07/20 21:35 Acetaminophen 325 Mg Tablet PO Q6H PRN Pain, Mild (Pain Scale 1-3) Aspirin 81 mg 06/08/20 21:00 06/10/20 20:38 Aspirin 81 Mg Tab.Chew PO 81 mg BEDTIME JOSSUE Administration Docusate Sodium 100 mg 06/07/20 21:35 Docusate Sodium 100 Mg Capsule PO DAILY PRN Constipation Enoxaparin Sodium 40 mg 06/07/20 21:35 06/10/20 20:39 Enoxaparin Sodium 40 Mg/0.4 Ml Syringe SUBCUT 40 mg Q24H JOSSUE Administration Levofloxacin 750 mg in 150 mls @ 100 mls/hr 06/07/20 21:45 06/10/20 23:48 Levaquin IV Infused Q24H JOSSUE Infusion Vancomycin HCl 1,500 mg/ 280 mls @ 186.667 mls/hr 06/09/20 12:00 06/11/20 03:11 Sodium Chloride IV Infused Q12H JOSSUE Infusion Insulin Glargine 12 unit 06/09/20 21:00 06/10/20 20:40 Insulin Glargine,Hum.Rec.Anlog 100 Unit/Ml 10 Ml Vial SUBCUT 12 unit BEDTIME JOSSUE Administration Insulin Human Lispro 0 unit 06/08/20 07:30 06/11/20 07:26 Insulin Lispro 100 Unit/Ml 3 Ml Vial SUBCUT Not Given QIDACHS [facility] Protocol Nicotine 14 mg 06/08/20 16:05 06/10/20 10:22 Nicotine 14 Mg Patch.Td24 TRANSDERMA Not Given DAILY [facility] Ondansetron HCl 4 mg 06/07/20 21:35 Ondansetron Hcl 4 Mg/2 Ml Vial IVPUSH Q8H PRN Nausea and Vomiting Oxycodone HCl 5 mg 06/07/20 21:35 Oxycodone Hcl Immed Release 5 Mg Tablet PO Q6H PRN Pain, Severe (Pain Scale 7-10) Pharmacy Consult 1 each 06/07/20 19:22 Consult Rx Perform Med Rec MISCELLANE ONCE PRN Consult order Pharmacy Consult 1 each 06/07/20 21:35 Consult Rx Vancomycin Dosing MISCELLANE DAILY PRN Consult order Sodium Chloride 3 ml 06/08/20 00:00 06/11/20 00:40 0.9 % Sodium Chloride Flush 3 Ml Syringe IVFLUSH 3 ml QSHIFT JOSSUE Administration Time Spent With Patient Time: Total time spent is greater than 50% in coordination of care (as documented) at patient's floor/unit and/or counseling patient: Time with patient: 15 - 24 minutes
--- NOTE | 2020-06-11 08:45 | MHC.SHP ---
Pre-Procedural Eval Section A The patient is an INPATIENT: Yes Changes since office visit: Yes Patient answered all questions; No Cold of Flu in the past 2 weeks, No New Medical Problems and No Changes in Medication The History & Physical has been completed within 30 days and I have reviewed it.: Yes Section B Chief Complaint: Osteomyelitis Allergies: Allergies Allergy/AdvReac Type Severity Reaction Status Date / Time No Known Allergies Allergy Verified 06/07/20 19:22 Plan Diagnosis/Plan: Unchanged I have reviewed the history and physical and performed a pertinent physical examination on my patient. No changes have occurred unless specified.
--- NOTE | 2020-06-11 09:43 | MHC.CM.PN ---
nurse rn managed care note ELECTRONIC MEDICAL RECORD REVIEWED ALONG WITH CASE DISCUSSED WITH [facility] nurse,constantin has agreed to have toe amputation on the surgical schedue for today . rn managed care to continue to follow for changing discharge needs (
[2020-06-11 10:31] LABS: Glucose, Whole Blood 145 mg/dL (60-115)
--- NOTE | 2020-06-11 10:34 | PC.NURSE ---
Lungs sounds assessed, found to be wheezes even after coughing. History of smoking, 5 days since last cigarette. Dr Erazo Anesthesia notified, okayed to proceed without respiratory treatment pre procedure
--- NOTE | 2020-06-11 10:44 | HO.PM.IMPN ---
Subjective Subjective Date of Service: 06/11/20 Interval History: Patient has multiple questions regarding surgery he is NPO scheduled for left 5th toe amputation, no acute overnight issues pre meal blood sugars noted to be elevated in 200. Review of Systems General no headache, no dizziness, no fever chills. CVS no chest pain, no palpitation. Respiratory no cough, no shortness of breath Gastrointestinal no nausea, no vomiting, no abdominal pain, no diarrhea Physical Exam Vital Signs: Vital Signs: Last Vital Signs Temp 99.1 F 06/11/20 10:36 Pulse 85 06/11/20 10:36 Resp 18 06/11/20 10:36 BP 142/76 H 06/11/20 10:36 Pulse Ox 98 06/11/20 10:36 Body Mass Index 28.4 General patient resting comfortably in no acute distress. Neck is supple no JVD. CVS regular rate rhythm, Respiratory lungs clear to auscultation, coarse breath sound at bases, no respiratory distress, no wheeze, no rhonchi. Gastrointestinal abdomen soft, nontender, bowel sounds audible, no guarding , no rigidity. Extremities left foot significant improvement in redness and swelling of leg and dorsum of foot, open wound lateral margin of 5th toe Neuro nonfocal Psych appropriate affect Objective Data Current Medications Generic Name Dose Route Start Last Admin Trade Name Freq PRN Reason Stop Dose Admin Acetaminophen 650 mg 06/07/20 21:35 Acetaminophen 325 Mg Tablet PO Q6H PRN Pain, Mild (Pain Scale 1-3) Aspirin 81 mg 06/08/20 21:00 06/10/20 20:38 Aspirin 81 Mg Tab.Chew PO 81 mg BEDTIME JOSSUE Administration Docusate Sodium 100 mg 06/07/20 21:35 Docusate Sodium 100 Mg Capsule PO DAILY PRN Constipation Enoxaparin Sodium 40 mg 06/07/20 21:35 06/10/20 20:39 Enoxaparin Sodium 40 Mg/0.4 Ml Syringe SUBCUT 40 mg Q24H JOSSUE Administration Levofloxacin 750 mg in 150 mls @ 100 mls/hr 06/07/20 21:45 06/10/20 23:48 Levaquin IV Infused Q24H JOSSUE Infusion Vancomycin HCl 1,500 mg/ 280 mls @ 186.667 mls/hr 06/09/20 12:00 06/11/20 03:11 Sodium Chloride IV Infused Q12H JOSSUE Infusion Insulin Glargine 12 unit 06/09/20 21:00 06/10/20 20:40 Insulin Glargine,Hum.Rec.Anlog 100 Unit/Ml 10 Ml Vial SUBCUT 12 unit BEDTIME [facility] Administration Insulin Human Lispro 0 unit 06/08/20 07:30 06/11/20 07:26 Insulin Lispro 100 Unit/Ml 3 Ml Vial SUBCUT Not Given QIDACHS [facility] Protocol Nicotine 14 mg 06/08/20 16:05 06/11/20 09:32 Nicotine 14 Mg Patch.Td24 TRANSDERMA Not Given DAILY [facility] Ondansetron HCl 4 mg 06/07/20 21:35 Ondansetron Hcl 4 Mg/2 Ml Vial IVPUSH Q8H PRN Nausea and Vomiting Oxycodone HCl 5 mg 06/07/20 21:35 Oxycodone Hcl Immed Release 5 Mg Tablet PO Q6H PRN Pain, Severe (Pain Scale 7-10) Pharmacy Consult 1 each 06/07/20 19:22 Consult Rx Perform Med Rec MISCELLANE ONCE PRN Consult order Pharmacy Consult 1 each 06/07/20 21:35 Consult Rx Vancomycin Dosing MISCELLANE DAILY PRN Consult order Sodium Chloride 3 ml 06/08/20 00:00 06/11/20 09:32 0.9 % Sodium Chloride Flush 3 Ml Syringe IVFLUSH 3 ml QSHIFT [facility] Administration Labs CBC & Chem 7: 06/08/20 04:35 06/11/20 05:45 Microbiology Microbiology Results: Microbiology 06/07/20 20:15 Blood - Venous Blood Culture - Preliminary No growth after 48 hours. 06/07/20 20:15 Blood - Venous Blood Culture - Preliminary No growth after 48 hours. Assessment and Plan (1) Diabetic foot infection: Problem details: foot infection MRSA,Enterobacter and enterococcus He is unfortunately having cellulitis and worsening foot infection Discussed today with Dr Nice and area may have debridement/and or amputation He doesnt have regular transport for HBO He has failed organism directed oral therapy Status: Acute (2) Osteomyelitis: Status: Acute (3) Tobacco use disorder: Status: Acute (4) MRSA (methicillin resistant staph aureus) culture positive: Status: Acute Assessment and Plan: 59-year-old with history of diabetes who presents to the hospital with complaints of worsening left foot wound. Of note patient was treated for this wound in April after being on antibiotics for 2 weeks. # left 5th toe wound,osteomyelitis and cellulitis related to diabetes and peripheral vascular disease No acute complaints, some left 5th toe discomfort, no fever, chills, normal WBC count, status post prolong antibiotic treatment with no resolution of infection cultures from the same wound in April showed Enterobacter Cloacea complex, MRSA, and Enterococcus faecalis MRI from April 21 showed osteomyelitis, on IV vancomycin and Levaquin day 4 Vanco trough 12.2, blood cultures time 2 showed no growth Patient is scheduled for left 5th toe amputation by Dr. Masters today Patient seen by Dr. Ott and underwent bilateral lower extremity arterial duplex ultrasound that showed no hemodynamically significant arterial stenosis bilaterally. All questions related to surgery answered. # history of peripheral vascular disease on aspirin and Plavix # DM type 2 fasting blood sugar improving with addition of Lantus, take metformin 500 b.i.d. at home, continue insulin sliding scale will adjust dose due to elevated blood sugar pre meals, diabetic diet and follow blood sugar closely, hemoglobin A1c 8.5 in February suggestive of poor blood sugar control # tobacco use disorder on nicotine patch, counseling done # DVT prophylaxis with Lovenox
[2020-06-11] MEDS: Lactated Ringers 1,000 ML 100 ML IVCONT ×2 (10:51→17:31)
[2020-06-11] MEDS: ceFAZolin Sodium/Dextrose,Iso 2 GM/50 ML PIGGYBACK IV (10:52)
--- NOTE | 2020-06-11 10:58 | P.CONAN_ITS ---
[facility] Past Medical History Medical History Diabetes mellitus type 2 in obese Diabetic foot infection Social History Social History Household Members: Spouse and Children Housing: Apartment Do you presently have visiting nurse or other home services: No Smoking Status: Current every day smoker Tobacco Type: Cigarette Cigarettes Per Day: 10 Years Smoked: 40 Smoked in Last 30 Days: Yes Patient Interested in Nicotine Replacement: Yes Patient Given Instructions on How to Stop Smoking: No Second Hand Smoke Exposure: Yes Use of substances other than those prescribed or required for medical reasons: No Currently Displaying Signs/Symptoms of Drug Intoxication Withdrawal: No Have you been hit, kicked, punched, or otherwise hurt by someone within the past year? If so, by whom?: No Do you feel safe in your current relationship?: Yes Is there a partner from a previous relationship who is making you feel unsafe now?: No Are you made to feel afraid or neglected: No Advance Directives: No Advance Directives Information Provided: Yes Advance Directives on File: Yes Do you have thoughts of harming others: None Do you have a plan to hurt others: No Plan Recently lost weight without trying: No service: No Current occupational status: employed Meds Allergies Allergy/AdvReac Type Severity Reaction Status Date / Time No Known Allergies Allergy Verified 06/07/20 19:22 Home Medications Medication Instructions Recorded Confirmed Type clopidogrel 75 mg tablet 75 mg PO DAILY 05/15/20 06/07/20 History aspirin 81 mg PO BEDTIME 06/07/20 06/07/20 History metformin 500 mg PO BID 06/07/20 06/07/20 History Exam Exam Date and Time: June 11, 2020 1058 Height,Weight and Vital Signs: Height 5 ft 11 in Weight 92.4 kg Last Vital Signs Temp 99.1 F 06/11/20 10:36 Pulse 85 06/11/20 10:36 Resp 18 06/11/20 10:36 BP 142/76 H 06/11/20 10:36 Pulse Ox 98 06/11/20 10:36 Pertinent Lab Results Pertinent Lab Results: Laboratory Tests 06/07/20 06/07/20 06/07/20 20:15 20:15 20:16 WBC 8.2 RBC 3.78 L Hgb 12.7 L Hct 36.7 L MCV 97.1 MCH 33.6 H MCHC 34.6 RDW 15.5 Plt Count 193 D MPV 10.0 Immature Gran % (Auto) 0.4 Neut % (Auto) 67.6 Lymph % (Auto) 20.1 [place] % (Auto) 11.0 Eos % (Auto) 0.7 Baso % (Auto) 0.2 Lymph # (Auto) 1.7 [place] # (Auto) 0.9 Eos # (Auto) 0.1 Baso # (Auto) 0.0 Abs Immat Gran (auto) 0.03 Absolute Neuts (auto) 5.5 Absolute Nucleated RBC 0.000 Nucleated RBC % (auto) 0.0 ESR 21 H Sodium Potassium Chloride Carbon Dioxide Anion Gap BUN Creatinine Estim Creat Clear Calc Estimated GFR POC Glucose Random Glucose Lactic Acid 0.8 Calcium C-Reactive Protein Vancomycin Trough COVID-19 (SAM) COVID-19 [employer] 06/07/20 06/07/20 06/07/20 20:16 20:16 21:56 WBC RBC Hgb Hct MCV MCH MCHC RDW Plt Count MPV Immature Gran % (Auto) Neut % (Auto) Lymph % (Auto) [place] % (Auto) Eos % (Auto) Baso % (Auto) Lymph # (Auto) [place] # (Auto) Eos # (Auto) Baso # (Auto) Abs Immat Gran (auto) Absolute Neuts (auto) Absolute Nucleated RBC Nucleated RBC % (auto) ESR Sodium 134 L Potassium 4.4 Chloride 98 Carbon Dioxide 28 Anion Gap 12 BUN 14 D Creatinine 0.84 Estim Creat Clear Calc TNP Estimated GFR > 60 POC Glucose 219 H Random Glucose 203 H Lactic Acid Calcium 8.4 C-Reactive Protein 3.45 H Vancomycin Trough COVID-19 (SAM) Negative COVID-19 [employer] See Note 06/08/20 06/08/20 06/08/20 04:35 04:35 07:22 WBC 7.0 RBC 3.44 L Hgb 11.6 L Hct 33.5 L MCV 97.4 MCH 33.7 H MCHC 34.6 RDW 15.5 Plt Count 184 MPV 10.5 Immature Gran % (Auto) 0.3 Neut % (Auto) 60.7 Lymph % (Auto) 25.8 [place] % (Auto) 11.2 H Eos % (Auto) 1.4 Baso % (Auto) 0.6 Lymph # (Auto) 1.8 [place] # (Auto) 0.8 Eos # (Auto) 0.1 Baso # (Auto) 0.0 Abs Immat Gran (auto) 0.02 Absolute Neuts (auto) 4.2 Absolute Nucleated RBC 0.000 Nucleated RBC % (auto) 0.0 ESR Sodium 136 Potassium 4.0 Chloride 103 Carbon Dioxide 24 Anion Gap 13 BUN 10 Creatinine 0.70 Estim Creat Clear Calc TNP Estimated GFR > 60 POC Glucose 194 H Random Glucose 158 H Lactic Acid Calcium 7.8 L D C-Reactive Protein Vancomycin Trough COVID-19 (SAM) COVID-19 [employer] 06/08/20 06/08/20 06/08/20 11:39 16:27 20:20 WBC RBC Hgb Hct MCV MCH MCHC RDW Plt Count MPV Immature Gran % (Auto) Neut % (Auto) Lymph % (Auto) [place] % (Auto) Eos % (Auto) Baso % (Auto) Lymph # (Auto) [place] # (Auto) Eos # (Auto) Baso # (Auto) Abs Immat Gran (auto) Absolute Neuts (auto) Absolute Nucleated RBC Nucleated RBC % (auto) ESR Sodium Potassium Chloride Carbon Dioxide Anion Gap BUN Creatinine Estim Creat Clear Calc Estimated GFR POC Glucose 215 H 130 H 275 H Random Glucose Lactic Acid Calcium C-Reactive Protein Vancomycin Trough COVID-19 (SAM) COVID-[employer] 06/09/20 06/09/20 06/09/20 07:35 09:58 11:16 WBC RBC Hgb Hct MCV MCH MCHC RDW Plt Count MPV Immature Gran % (Auto) Neut % (Auto) Lymph % (Auto) [place] % (Auto) Eos % (Auto) Baso % (Auto) Lymph # (Auto) [place] # (Auto) Eos # (Auto) Baso # (Auto) Abs Immat Gran (auto) Absolute Neuts (auto) Absolute Nucleated RBC Nucleated RBC % (auto) ESR Sodium Potassium Chloride Carbon Dioxide Anion Gap BUN Creatinine Estim Creat Clear Calc Estimated GFR POC Glucose 188 H 289 H Random Glucose Lactic Acid Calcium C-Reactive Protein Vancomycin Trough 7.2 L COVID-19 (SAM) COVID-19 [employer] 06/09/20 06/09/20 06/10/20 16:47 20:25 06:58 WBC RBC Hgb Hct MCV MCH MCHC RDW Plt Count MPV Immature Gran % (Auto) Neut % (Auto) Lymph % (Auto) [place] % (Auto) Eos % (Auto) Baso % (Auto) Lymph # (Auto) [place] # (Auto) Eos # (Auto) Baso # (Auto) Abs Immat Gran (auto) Absolute Neuts (auto) Absolute Nucleated RBC Nucleated RBC % (auto) ESR Sodium 138 Potassium 4.3 Chloride 103 Carbon Dioxide 27 Anion Gap 12 BUN 8 L Creatinine 0.70 Estim Creat Clear Calc 132.0 Estimated GFR > 60 POC Glucose 204 H 215 H Random Glucose 130 H Lactic Acid Calcium 8.1 L C-Reactive Protein Vancomycin Trough COVID-19 ([facility]) COVID-19 [facility] 06/10/20 06/10/20 06/10/20 07:09 11:56 16:02 WBC RBC Hgb Hct MCV MCH MCHC RDW Plt Count MPV Immature Gran % (Auto) Neut % (Auto) Lymph % (Auto) [place] % (Auto) Eos % (Auto) Baso % (Auto) Lymph # (Auto) [place] # (Auto) Eos # (Auto) Baso # (Auto) Abs Immat Gran (auto) Absolute Neuts (auto) Absolute Nucleated RBC Nucleated RBC % (auto) ESR Sodium Potassium Chloride Carbon Dioxide Anion Gap BUN Creatinine Estim Creat Clear Calc Estimated GFR POC Glucose 144 H 215 H 246 H Random Glucose Lactic Acid Calcium C-Reactive Protein Vancomycin Trough COVID-19 ([facility]) COVID-19 [facility] 06/10/20 06/10/20 06/11/20 20:18 22:33 05:45 WBC RBC Hgb Hct MCV MCH MCHC RDW Plt Count MPV Immature Gran % (Auto) Neut % (Auto) Lymph % (Auto) [place] % (Auto) Eos % (Auto) Baso % (Auto) Lymph # (Auto) [place] # (Auto) Eos # (Auto) Baso # (Auto) Abs Immat Gran (auto) Absolute Neuts (auto) Absolute Nucleated RBC Nucleated RBC % (auto) ESR Sodium 139 Potassium 4.8 Chloride 104 Carbon Dioxide 23 Anion Gap 17 BUN 9 Creatinine 0.71 Estim Creat Clear Calc 130.1 Estimated GFR > 60 POC Glucose 287 H Random Glucose 126 H Lactic Acid Calcium 8.5 C-Reactive Protein Vancomycin Trough 12.2 COVID-19 (SAM) COVID-19 Clin Com 06/11/20 06/11/20 07:22 10:27 WBC RBC Hgb Hct MCV MCH MCHC RDW Plt Count MPV Immature Gran % (Auto) Neut % (Auto) Lymph % (Auto) [place] % (Auto) Eos % (Auto) Baso % (Auto) Lymph # (Auto) [place] # (Auto) Eos # (Auto) Baso # (Auto) Abs Immat Gran (auto) Absolute Neuts (auto) Absolute Nucleated RBC Nucleated RBC % (auto) ESR Sodium Potassium Chloride Carbon Dioxide Anion Gap BUN Creatinine Estim Creat Clear Calc Estimated GFR POC Glucose 174 H 145 H Random Glucose Lactic Acid Calcium C-Reactive Protein Vancomycin Trough COVID-19 (SAM) COVID-19 Clin Com Airway Mallampati Class: II TM Dist: >3cm Neck ROM: Full Loose/Missing/Broken Teeth: Yes Heart: [id number] Lungs: ctab/l Assessment and Plan Assessment Anesthesia Assessment: Anesthesia Plan Discussed and Chart Reviewed Final Anesthetic Review NPO: Yes ASA Class: III Final Preanesthetic Review: No Changes in Pt Med Stat, Meds/Allgs Chart Reviewed, Consent Obtained/Reviewed and Anes Risks/Benef Reviewed Patient Risk: Intermediate Procedure Risk: Low Assessment/Block/Sedation in SS: Assess/Block/Sedation-SS Anesthetic Plan Anesthetic Plan: MAC: and Agree w/ Assess. and Plan Disposition: Standard PACU
--- NOTE | 2020-06-11 11:54 | W.PM.OPN ---
Operative Note Operative Note Date of Service: 06/11/20 Narrative: Preoperative diagnosis: Osteomyelitis left 5th toe Postoperative diagnosis: Same Procedure: Amputation of left 5th toe Surgeon Crescencio Masters MD Solution Developer: Nany Perdomo PA-C Anesthesia: MAC Indications for procedure: 59-year-old male with history of diabetes mellitus found to have an ulcer in the lateral left foot. Patient has had a nonhealing ulcer [facility] without much improvement. He was admitted with increasing cellulitis over the forefoot. He was placed on IV antibiotics and presents now for amputation of the left 5th toe which has osteomyelitis involving the distal metatarsal and proximal phalanx. Operative findings: Patient was found to have obvious osteo involving the distal metatarsal and proximal phalanx within overlying ulcer. More proximal metatarsal is felt to be normal. Specimen: Wound culture Estimated blood loss: 10 mL Complications: None Procedure details: Patient was brought to the OR placed in a supine position. After administering light sedation the patient's left foot was prepped with Betadine and draped in a sterile fashion. A surgical time-out was called and consent confirmed. Patient received preoperative antibiotics. Local anesthesia consisting of 1% lidocaine plain with 0.5% Sensorcaine plain was infiltrated in the left foot as a digital block. An elliptical incision to include the 5th toe extending up along the distal metatarsal was created with a scalpel. This was then carried down through subcutaneous tissue down to the proximal phalanx and distal metatarsal. Hemostasis was assured with electrocautery. A periosteal elevator was used to dissect around the midportion of the metatarsal of the 5th toe. Bone cutter was then used to divide the metatarsal at this mid portion level. Toe in Med were then removed and sent to pathology for further examination. A rongeur was then used to further resect the metatarsal more proximal. Hemostasis was assured using electrocautery. Wounds were irrigated with saline solution. A quarter-inch Amorita drain was placed in the wound bed and subcutaneous tissue reapproximated using interrupted 3-0 Polysorb sutures. Skin was then closed using interrupted 3-0 nylon sutures. Xeroform, fluffed gauze, Kerlix, and Joby bandage then applied. The patient tolerated the procedure well. Sponge, instrument, needle counts reported as correct. The patient was transferred to PACU in stable condition.
--- NOTE | 2020-06-11 12:00 | P.BOP_ITS ---
Brief Operative Note Date of Service: 06/11/20 Pre-op diagnosis: Osteomyelitis left 5th toe Post-op diagnosis: same Procedure: Amputation of left 5th toe Implants: None Surgeon: Crescencio Masters MD Anesthesia: MAC [employer] Project Manager: Nany Perdomo Estimated blood loss (mL): 10 Pathology: other (Left 5th toe) Condition: stable Disposition: PACU
--- NOTE | 2020-06-11 13:06 | HO.VASCPN ---
Subjective Subjective Date of Service: 06/11/20 Patient reports: no new complaints Interval history: Patient for follow-up regarding nonhealing left 5th toe ulceration. Of note he has had prior endovascular intervention. He has had noninvasive testing. For routine follow-up. Of note he is scheduled for toe amputation later today. Physical Exam Vital Signs: Vital Signs: Last Vital Signs Temp 97.4 F 06/11/20 12:12 Pulse 80 06/11/20 12:12 Resp 17 06/11/20 12:12 BP 144/77 H 06/11/20 12:12 Pulse Ox 99 06/11/20 12:12 Body Mass Index 28.4 Const: General: cooperative, healthy appearing and no acute distress Orientation/consciousness: oriented to person, oriented to place and oriented to time HENMT: Head: Yes normal to inspection Neck: Carotids: no bruits Chest: Chest palpation & inspection: normal inspection of the chest Resp: Effort & Inspection: normal respiratory effort and able to speak in complete sentences Auscultation: clear to auscultation bilaterally Cardio: Rate: regular rate Heart sounds: S1 normal heart sound present and S2 normal heart sound present GI: Inspection: Yes normal to inspection Skin: General skin exam: no rashes or lesions noted Wounds: wounds noted (Left 5th toe) Neuro: General: oriented to person, oriented to place, oriented to time and CN's II-XI intact bilaterally Extrem: General: Yes normal to inspection, Yes full ROM and Yes no clubbing, cyanosis or edema Psych: Appearance: grossly normal and well kempt Speech and movement: Normal speech and movement present Affect: normal affect Progress Note: A&P Assessment and plan (1) PAD (peripheral artery disease): Status: Acute Assessment and Plan: Patient with prior history of endovascular intervention. Has had SFA and tibial stenting. Noninvasive testing demonstrates an DANIAL of 0.8 with no visualized focal stenosis on ultrasound. Stable from a vascular perspective for amputation. Upon discharge he will need to follow-up with his interventionalist Dr. Carreon. In addition he will be following up with Dr. Masters for his toe amputation. We will follow on an as-needed basis. Thank you for allowing me to assist in his care. Fall Risk Details Current Medications: Current Medications Generic Name Dose Route Start Last Admin Trade Name Freq PRN Reason Stop Dose Admin Acetaminophen 650 mg 01/21/21 21:35 Acetaminophen 325 Mg Tablet PO Q6H PRN Pain, Mild (Pain Scale 1-3) Aspirin 81 mg 06/08/20 21:00 06/10/20 20:38 Aspirin 81 Mg Tab.Chew PO 81 mg BEDTIME JOSSUE Administration Docusate Sodium 100 mg 06/07/20 21:35 Docusate Sodium 100 Mg Capsule PO DAILY PRN Constipation Enoxaparin Sodium 40 mg 06/07/20 21:35 06/10/20 20:39 Enoxaparin Sodium 40 Mg/0.4 Ml Syringe SUBCUT 40 mg Q24H JOSSUE Administration Levofloxacin 750 mg in 150 mls @ 100 mls/hr 06/07/20 21:45 06/10/20 23:48 Levaquin IV Infused Q24H JOSSUE Infusion Vancomycin HCl 1,500 mg/ 280 mls @ 186.667 mls/hr 06/09/20 12:00 06/11/20 03:11 Sodium Chloride IV Infused Q12H JOSSUE Infusion Lactated Ringer's 1,000 mls @ 100 mls/hr 06/11/20 10:47 06/11/20 10:51 Lr IVCONT 100 mls/hr .Q10H JOSSUE Administration Insulin Glargine 12 unit 06/09/20 21:00 06/10/20 20:40 Insulin Glargine,Hum.Rec.Anlog 100 Unit/Ml 10 Ml Vial SUBCUT 12 unit BEDTIME JOSSUE Administration Insulin Human Lispro 0 unit 06/08/20 07:30 06/11/20 07:26 Insulin Lispro 100 Unit/Ml 3 Ml Vial SUBCUT Not Given QIDACHS [facility] Protocol Nicotine 14 mg 06/08/20 16:05 06/11/20 09:32 Nicotine 14 Mg Patch.Td24 TRANSDERMA Not Given DAILY [facility] Ondansetron HCl 4 mg 06/07/20 21:35 Ondansetron Hcl 4 Mg/2 Ml Vial IVPUSH Q8H PRN Nausea and Vomiting Oxycodone HCl 5 mg 06/07/20 21:35 Oxycodone Hcl Immed Release 5 Mg Tablet PO Q6H PRN Pain, Severe (Pain Scale 7-10) Pharmacy Consult 1 each 06/07/20 19:22 Consult Rx Perform Med Rec MISCELLANE ONCE PRN Consult order Pharmacy Consult 1 each 06/07/20 21:35 Consult Rx Vancomycin Dosing MISCELLANE DAILY PRN Consult order Sodium Chloride 3 ml 06/08/20 00:00 06/11/20 09:32 0.9 % Sodium Chloride Flush 3 Ml Syringe IVFLUSH 3 ml QSHIFT [facility] Administration Time Spent With Patient Time: Total time spent is greater than 50% in coordination of care (as documented) at patient's floor/unit and/or counseling patient: Time with patient: 15 - 24 minutes
[2020-06-11 16:58] LABS: Glucose, Whole Blood 240 mg/dL (60-115)
[2020-06-11] MEDS: Insulin Lispro 100 UNIT/ML 3 ML VIAL SUBCUT ×2 (17:11→20:55)
[2020-06-11 20:52] LABS: Glucose, Whole Blood 288 mg/dL (60-115)
[2020-06-11] MEDS: Aspirin 81 MG TAB.CHEW PO (20:54)
[2020-06-11] MEDS: Insulin Glargine,Hum.rec.anlog 100 UNIT/ML 10 ML VIAL 12 UNIT SUBCUT (20:55)
[2020-06-11] MEDS: Enoxaparin Sodium 40 MG/0.4 ML SYRINGE SUBCUT (20:56)
[2020-06-11] MEDS: levoFLOXacin/D5W 750 MG/150 ML PIGGYBACK 100 MG IV (20:57)
[2020-06-12 03:27] VITALS: BP 133/66; PULSE 84; RESP 18; TEMP 37; O2SAT 97
[2020-06-12] MEDS: Lactated Ringers 1,000 ML 100 ML IVCONT ×2 (05:51→14:52)
[2020-06-12] MEDS: Insulin Lispro 100 UNIT/ML 3 ML VIAL SUBCUT ×4 (07:27→21:59)
[2020-06-12 07:48] LABS: Glucose, Whole Blood 170 mg/dL (60-115)
--- NOTE | 2020-06-12 08:08 | PM.PNGS ---
Subjective Subjective Date of Service: 06/12/20 Interval history: Having some pain at amputation site but tolerable. Experienced pins and needles sensation with VTE boot in place. Physical Exam Vital Signs: Vital Signs: Last Vital Signs Temp 98.6 F 06/12/20 03:27 Pulse 84 06/12/20 03:27 Resp 18 06/12/20 03:27 BP 133/66 06/12/20 03:27 Pulse Ox 97 06/12/20 03:27 Body Mass Index 28.4 Const: General: comfortable, no acute distress and alert Orientation/consciousness: patient oriented x3 Resp: Effort & Inspection: normal respiratory effort Skin: Other: normal color, warm and dry Neuro: General: patient oriented x3 Extrem: Other: left amputation site- sutures and chary drain intact, some dark sanguineous drainage, mild edema of plantar aspect General: Yes no clubbing, cyanosis or edema Progress Note: A&P Assessment and plan (1) MRSA (methicillin resistant staph aureus) culture positive: Status: Acute (2) Diabetic foot infection: Problem details: foot infection MRSA,Enterobacter and enterococcus He is unfortunately having cellulitis and worsening foot infection He doesnt have regular transport for HBO He has failed organism directed oral therapy Status: Acute Assessment and Plan: POD #1 s/p left fifth toe amp (3) Osteomyelitis: Status: Acute (4) Amputation of fifth toe of left foot: Problem details: POD #1 Status: Acute Assessment and Plan: Doing fairly well post op. Amputation site with sutures and chary drain intact, mild edema, no purulent drainage or necrosis. Will need offloading shoe, VNA for dressing changes. Antibiotic recommendations per ID/hospitalist service. Fall Risk Details Current Medications: Current Medications Generic Name Dose Route Start Last Admin Trade Name Freq PRN Reason Stop Dose Admin Acetaminophen 650 mg 06/07/20 21:35 Acetaminophen 325 Mg Tablet PO Q6H PRN Pain, Mild (Pain Scale 1-3) Aspirin 81 mg 06/08/20 21:00 06/11/20 20:54 Aspirin 81 Mg Tab.Chew PO 81 mg BEDTIME JOSSUE Administration Docusate Sodium 100 mg 06/07/20 21:35 Docusate Sodium 100 Mg Capsule PO DAILY PRN Constipation Enoxaparin Sodium 40 mg 06/07/20 21:35 06/11/20 20:56 Enoxaparin Sodium 40 Mg/0.4 Ml Syringe SUBCUT 40 mg Q24H JOSSUE Administration Levofloxacin 750 mg in 150 mls @ 100 mls/hr 06/07/20 21:45 06/11/20 22:54 Levaquin IV Infused Q24H JOSSUE Infusion Vancomycin HCl 1,500 mg/ 280 mls @ 186.667 mls/hr 06/09/20 12:00 06/12/20 02:02 Sodium Chloride IV Infused Q12H JOSSUE Infusion Lactated Ringer's 1,000 mls @ 100 mls/hr 06/11/20 10:47 06/12/20 05:51 Lr IVCONT 100 mls/hr .Q10H JOSSUE Administration Insulin Glargine 12 unit 06/09/20 21:00 06/11/20 20:55 Insulin Glargine,Hum.Rec.Anlog 100 Unit/Ml 10 Ml Vial SUBCUT 12 unit BEDTIME JOSSUE Administration Insulin Human Lispro 0 unit 06/08/20 07:30 06/12/20 07:27 Insulin Lispro 100 Unit/Ml 3 Ml Vial SUBCUT 4 unit QIDACHS JOSSUE Administration Protocol Nicotine 14 mg 06/08/20 16:05 06/12/20 07:29 Nicotine 14 Mg Patch.Td24 TRANSDERMA Not Given DAILY [facility] Ondansetron HCl 4 mg 06/07/20 21:35 Ondansetron Hcl 4 Mg/2 Ml Vial IVPUSH Q8H PRN Nausea and Vomiting Oxycodone HCl 5 mg 06/07/20 21:35 Oxycodone Hcl Immed Release 5 Mg Tablet PO Q6H PRN Pain, Severe (Pain Scale 7-10) Pharmacy Consult 1 each 06/07/20 19:22 Consult Rx Perform Med Rec MISCELLANE ONCE PRN Consult order Pharmacy Consult 1 each 06/07/20 21:35 Consult Rx Vancomycin Dosing MISCELLANE DAILY PRN Consult order Sodium Chloride 3 ml 06/08/20 00:00 06/12/20 07:29 0.9 % Sodium Chloride Flush 3 Ml Syringe IVFLUSH Not Given QSHIFT [facility] Time Spent With Patient Time: Total time spent is greater than 50% in coordination of care (as documented) at patient's floor/unit and/or counseling patient: Time with patient: 15 - 24 minutes
--- NOTE | 2020-06-12 10:21 | MHC.CM.PN ---
CM MET WITH PT [facility] CURRENTLY DECLINES VNA AND HOME SERVICES, PT STATES, I HAVE MY AND MY DAUGHTER AT HOME TO HELP CM TO CONTINUE TO FOLLOW PT'S DISCHARGE NEEDS.
[2020-06-12 10:39] LABS: MANUAL DIFF FLAG NO
[2020-06-12 10:47] LABS: Basophils Percent Auto 0.5 % (0-2); Eosinophils Absolute Auto 0.2 X10*3/uL (0.0-0.4); Hematocrit 34.5 % (42-52); Hemoglobin 11.7 g/dl (14.0-18.0); Imm Gran Abs Auto 0.04 X10*3/uL (0.00-0.03); Imm Gran Pct Auto 0.5 % (0.0-0.4); Lymphocytes Absolute Auto 1.3 X10*3/uL (1.2-4.9); Mean Corpuscular HGB Conc 33.9 g/dl (31.0-36.0); Mean Corpuscular Volume 97.2 fL (80-98); Mean Platelet Volume 10.2 fL (9.4-12.4); Monocytes Absolute Auto 0.8 X10*3/uL (0.1-1.2); Monocytes Percent Auto 11.2 % (2-11); Neutrophils Percent Auto 67.8 % (45-73); Platelet Count 252 X10*3/uL (160-400); Red Blood Count 3.55 X10*6/uL (4.60-5.80); Red Cell Distribution Width 14.4 % (11.0-16.0); White Blood Count 7.4 X10*3/uL (4.8-10.8)
[2020-06-12 11:14] LABS: Vancomycin Trough 9.3 mcg/mL (10.0-20.0)
[2020-06-12 11:40] LABS: Glucose, Whole Blood 182 mg/dL (60-115)
[2020-06-12 12:00] VITALS: BP 140/81; PULSE 83; RESP 18; TEMP 36.2; O2SAT 98
--- NOTE | 2020-06-12 15:26 | P.PNIM_ITS ---
Subjective Subjective Date of Service: 06/12/20 Interval History: Patient complained of discomfort left toe, denies fever chills tolerating diet, no other acute issues postoperatively. Review of Systems General no headache, no dizziness, no fever chills. CVS no chest pain, no palpitation. Respiratory no cough, no shortness of breath Gastrointestinal no nausea, no vomiting, no abdominal pain, no diarrhea Physical Exam Vital Signs: Vital Signs: Last Vital Signs Temp 97.2 F 06/12/20 12:00 Pulse 83 06/12/20 12:00 Resp 18 06/12/20 12:00 BP 140/81 H 06/12/20 12:00 Pulse Ox 98 06/12/20 12:00 Body Mass Index 28.4 General patient resting comfortably,no acute distress. Neck is supple no JVD. CVS regular rate rhythm, Respiratory lungs clear to auscultation, no respiratory distress, no wheeze, no rhonchi. Gastrointestinal abdomen soft, nontender, bowel sounds audible, no guarding , no rigidity. Extremities left foot dressing in place, left swelling improving erythema resolved. Neuro nonfocal Psych appropriate affect Objective Data Current Medications Generic Name Dose Route Start Last Admin Trade Name Freq PRN Reason Stop Dose Admin Acetaminophen 650 mg 06/07/20 21:35 Acetaminophen 325 Mg Tablet PO Q6H PRN Pain, Mild (Pain Scale 1-3) Aspirin 81 mg 06/08/20 21:00 06/11/20 20:54 Aspirin 81 Mg Tab.Chew PO 81 mg BEDTIME JOSSUE Administration Docusate Sodium 100 mg 06/07/20 21:35 Docusate Sodium 100 Mg Capsule PO DAILY PRN Constipation Enoxaparin Sodium 40 mg 06/07/20 21:35 06/11/20 20:56 Enoxaparin Sodium 40 Mg/0.4 Ml Syringe SUBCUT 40 mg Q24H JOSSUE Administration Levofloxacin 750 mg in 150 mls @ 100 mls/hr 06/07/20 21:45 06/11/20 22:54 Levaquin IV Infused Q24H JOSSUE Infusion Vancomycin HCl 1,500 mg/ 280 mls @ 186.667 mls/hr 06/09/20 12:00 06/12/20 13:37 Sodium Chloride IV Infused Q12H JOSSUE Infusion Lactated Ringer's 1,000 mls @ 100 mls/hr 06/11/20 10:47 06/12/20 14:52 Lr IVCONT 100 mls/hr .Q10H [facility] Administration Insulin Glargine 12 unit 06/09/20 21:00 06/11/20 20:55 Insulin Glargine,Hum.Rec.Anlog 100 Unit/Ml 10 Ml Vial SUBCUT 12 unit BEDTIME JOSSUE Administration Insulin Human Lispro 0 unit 06/08/20 07:30 06/12/20 12:01 Insulin Lispro 100 Unit/Ml 3 Ml Vial SUBCUT 4 unit QIDACHS [facility] Administration Protocol Nicotine 14 mg 06/08/20 16:05 06/12/20 07:29 Nicotine 14 Mg Patch.Td24 TRANSDERMA Not Given DAILY [facility] Ondansetron HCl 4 mg 06/07/20 21:35 Ondansetron Hcl 4 Mg/2 Ml Vial IVPUSH Q8H PRN Nausea and Vomiting Oxycodone HCl 5 mg 06/07/20 21:35 Oxycodone Hcl Immed Release 5 Mg Tablet PO Q6H PRN Pain, Severe (Pain Scale 7-10) Pharmacy Consult 1 each 06/07/20 19:22 Consult Rx Perform Med Rec MISCELLANE ONCE PRN Consult order Pharmacy Consult 1 each 06/07/20 21:35 Consult Rx Vancomycin Dosing MISCELLANE DAILY PRN Consult order Sodium Chloride 3 ml 06/08/20 00:00 06/12/20 07:29 0.9 % Sodium Chloride Flush 3 Ml Syringe IVFLUSH Not Given QSHIFT [facility] Labs CBC & Chem 7: 06/12/20 10:27 06/11/20 05:45 Microbiology Microbiology Results: Microbiology 06/07/20 20:15 Blood - Venous Blood Culture - Preliminary No growth after 48 hours. 06/07/20 20:15 Blood - Venous Blood Culture - Preliminary No growth after 48 hours. Assessment and Plan (1) Amputation of fifth toe of left foot: Problem details: POD #1 Status: Acute (2) PAD (peripheral artery disease): Status: Acute (3) Osteomyelitis: Status: Acute (4) Tobacco use disorder: Status: Acute (5) Diabetic foot infection: Problem details: foot infection MRSA,Enterobacter and enterococcus He is unfortunately having cellulitis and worsening foot infection He doesnt have regular transport for HBO He has failed organism directed oral therapy Status: Acute Assessment and Plan: 59-year-old with history of diabetes who presents to the hospital with complaints of worsening left foot wound. Of note patient was treated for this wound in April after being on antibiotics for 2 weeks. # left 5th toe wound,osteomyelitis and cellulitis related to diabetes and peripheral vascular disease Status post amputation left 5th toe postoperative day 1, good pain control dressing done by surgery this a.m. hematocrit stable normal WBC. no fever, chills, normal WBC count, status post prolong antibiotic treatment with no resolution of infection cultures from the same wound in April showed Enterobacter Cloacea complex, MRSA, and Enterococcus faecalis MRI from April 21 showed osteomyelitis Will continue IV vancomycin and Levaquin day 5 Vanco trough 9.3, dose of Vanco to be adjusted, blood cultures time 2 showed no growth, will discuss duration of antibiotic with ID. Patient seen by Dr. Ott and underwent bilateral lower extremity arterial duplex ultrasound that showed no hemodynamically significant arterial stenosis bilaterally. Will DC IV fluid. Encourage out of bed to chair use offloading boot will discuss with surgery regarding discharge plan. # history of peripheral vascular disease on aspirin and Plavix # DM type 2 blood sugar improving with addition of Lantus, insulin sliding scale, take metformin 500 b.i.d. at home, continue diabetic diet and follow blood sugar closely, hemoglobin A1c 8.5 in February suggestive of poor blood sugar control, will start teachings to check blood sugar and administer insulin. # tobacco use disorder on nicotine patch, counseling done # DVT prophylaxis with Lovenox
[2020-06-12 16:00] VITALS: BP 117/64; PULSE 80; RESP 16; TEMP 36.2; O2SAT 99
--- NOTE | 2020-06-12 16:06 | HO.POSTANES ---
Post Anesthesia Evaluation Post Anesthesia Evaluation Vital Signs: Vital Signs Temp Pulse Resp BP Pulse Ox 06/12/20 12:00 97.2 F 83 18 140/81 H 98 Anesthesia: Monitored Mental Status: Awake Pain Control: Satisfactory Nausea/Vomiting: None Hydration: Adequate Anesthesia-Related Issues: No Anes. Related Issues
[2020-06-12 16:31] LABS: Glucose, Whole Blood 215 mg/dL (60-115)
[2020-06-12 20:00] VITALS: BP 147/73; PULSE 86; RESP 18; TEMP 36.8
[2020-06-12 20:56] VITALS: O2SAT 99
[2020-06-12] MEDS: Aspirin 81 MG TAB.CHEW PO (21:09)
[2020-06-12] MEDS: Enoxaparin Sodium 40 MG/0.4 ML SYRINGE SUBCUT (21:09)
[2020-06-12] MEDS: levoFLOXacin/D5W 750 MG/150 ML PIGGYBACK 100 MG IV (21:10)
[2020-06-12] MEDS: Insulin Glargine,Hum.rec.anlog 100 UNIT/ML 10 ML VIAL 12 UNIT SUBCUT (21:10)
[2020-06-12 21:17] LABS: Glucose, Whole Blood 198 mg/dL (60-115)
[2020-06-12 23:54] VITALS: BP 144/74; PULSE 79; RESP 20; TEMP 36.3; O2SAT 98
[2020-06-13 03:42] VITALS: BP 115/60; PULSE 76; RESP 18; TEMP 36.2; O2SAT 100
[2020-06-13 07:33] VITALS: BP 134/68; PULSE 73; RESP 18; TEMP 36.2; O2SAT 98
[2020-06-13] MEDS: 0.9 % Sodium Chloride Flush 3 ML SYRINGE IVFLUSH ×3 (07:52→17:07)
--- NOTE | 2020-06-13 07:53 | PM.PNGS ---
Subjective Subjective Date of Service: 06/13/20 Interval history: S/P amputation of left 5th toe, POD #2. Patient denies any new complaints. Physical Exam Vital Signs: Vital Signs: Last Vital Signs Temp 97.2 F 06/13/20 07:33 Pulse 73 06/13/20 07:33 Resp 18 06/13/20 07:33 BP 134/68 06/13/20 07:33 Pulse Ox 98 06/13/20 07:33 Body Mass Index 28.4 Const: General: cooperative, comfortable and no acute distress Resp: Effort & Inspection: normal respiratory effort and not tachypneic Skin: Other: warm and dry, no rash Extrem: Other: left foot dressing changed. Wounds clean, dry and intact without skin necrosis or erythema. Kevin drain remains in place. Progress Note: A&P Assessment and plan (1) Amputation of toe of left foot: Status: Acute Assessment and Plan: 59-year-old male patient with diabetes mellitus status post amputation of left 5th toe postoperative day 2. Wounds are clean and intact without evidence of infection. Will remove [place] drain tomorrow. Fall Risk Details Current Medications: Current Medications Generic Name Dose Route Start Last Admin Trade Name Freq PRN Reason Stop Dose Admin Acetaminophen 650 mg 06/07/20 21:35 Acetaminophen 325 Mg Tablet PO Q6H PRN Pain, Mild (Pain Scale 1-3) Aspirin 81 mg 06/08/20 21:00 06/12/20 21:09 Aspirin 81 Mg Tab.Chew PO 81 mg BEDTIME JOSSUE Administration Docusate Sodium 100 mg 06/07/20 21:35 Docusate Sodium 100 Mg Capsule PO DAILY PRN Constipation Enoxaparin Sodium 40 mg 06/07/20 21:35 06/12/20 21:09 Enoxaparin Sodium 40 Mg/0.4 Ml Syringe SUBCUT 40 mg Q24H JOSSUE Administration Levofloxacin 750 mg in 150 mls @ 100 mls/hr 06/07/20 21:45 06/12/20 23:40 Levaquin IV Infused Q24H JOSSUE Infusion Vancomycin HCl 1,500 mg/ 280 mls @ 186.667 mls/hr 06/09/20 12:00 06/13/20 01:36 Sodium Chloride IV Infused Q12H JOSSUE Infusion Insulin Glargine 12 unit 06/09/20 21:00 06/12/20 21:10 Insulin Glargine,Hum.Rec.Anlog 100 Unit/Ml 10 Ml Vial SUBCUT 12 unit BEDTIME [facility] Administration Insulin Human Lispro 0 unit 06/08/20 07:30 06/12/20 21:59 Insulin Lispro 100 Unit/Ml 3 Ml Vial SUBCUT 4 unit QIDACHS JOSSUE Administration Protocol Nicotine 14 mg 06/08/20 16:05 06/13/20 07:52 Nicotine 14 Mg Patch.Td24 TRANSDERMA Not Given DAILY [facility] Ondansetron HCl 4 mg 06/07/20 21:35 Ondansetron Hcl 4 Mg/2 Ml Vial IVPUSH Q8H PRN Nausea and Vomiting Oxycodone HCl 5 mg 06/07/20 21:35 Oxycodone Hcl Immed Release 5 Mg Tablet PO Q6H PRN Pain, Severe (Pain Scale 7-10) Pharmacy Consult 1 each 06/07/20 19:22 Consult Rx Perform Med Rec MISCELLANE ONCE PRN Consult order Pharmacy Consult 1 each 06/07/20 21:35 Consult Rx Vancomycin Dosing MISCELLANE DAILY PRN Consult order Sodium Chloride 3 ml 06/08/20 00:00 06/13/20 07:52 0.9 % Sodium Chloride Flush 3 Ml Syringe IVFLUSH 3 ml QSHIFT [facility] Administration Time Spent With Patient Time: Total time spent is greater than 50% in coordination of care (as documented) at patient's floor/unit and/or counseling patient: Time with patient: 15 - 24 minutes
[2020-06-13 08:09] LABS: Glucose, Whole Blood 171 mg/dL (60-115)
--- NOTE | 2020-06-13 11:56 | MHC.CM.PN ---
Addendum entered by Darshana Kendrick RN 06/13/20 15:02: PT ACCEPTED BY [facility], [facility] AWARE OF ANTIC. DISCHARGE DATE Original Note: CM MET WITH PT WHO IS NOW OPEN TO VNA SERVICES UPON DISCHARGE AND HAS NO PREFERENCE OF VNA COMPANY, CM MADE REFERRALS TO [facility], [facility] AND [facility]. PT ANTICIPATED DISCHARGE TOMORROW 06/14/20 AFTER SURGICAL REMOVES DRAINS WITH VNA FOR GROUP HOME, FAMILY TO TRANSPORT.
[2020-06-13 12:00] VITALS: BP 127/76; PULSE 85; RESP 17; TEMP 36.7; O2SAT 98
[2020-06-13 12:09] LABS: Glucose, Whole Blood 249 mg/dL (60-115)
--- NOTE | 2020-06-13 12:30 | P.PNIM_ITS ---
Subjective Subjective Date of Service: 06/13/20 Interval History: Patient offers no acute complaints, refusing to use offloading boot, denies pain, denies fever chills, no nausea, no vomiting , no other acute complaints overnight. Review of Systems General no headache, no dizziness, no fever chills. CVS no chest pain, no palpitation. Respiratory no cough, no shortness of breath Gastrointestinal no nausea, no vomiting, no abdominal pain, no diarrhea Physical Exam Vital Signs: Vital Signs: Last Vital Signs Temp 98.0 F 06/13/20 12:00 Pulse 85 06/13/20 12:00 Resp 17 06/13/20 12:00 BP 127/76 06/13/20 12:00 Pulse Ox 98 06/13/20 12:00 Body Mass Index 28.4 General patient resting comfortably,no acute distress. Neck is supple no JVD. CVS regular rate rhythm, Respiratory lungs clear to auscultation, no respiratory distress, no wheeze, no rhonchi. Gastrointestinal abdomen soft, nontender, bowel sounds audible, no guarding , no rigidity. Extremities left foot dressing in place, left leg swelling improving, erythema resolved. Neuro nonfocal Psych appropriate affect Objective Data Current Medications Generic Name Dose Route Start Last Admin Trade Name Freq PRN Reason Stop Dose Admin Acetaminophen 650 mg 06/07/20 21:35 Acetaminophen 325 Mg Tablet PO Q6H PRN Pain, Mild (Pain Scale 1-3) Amoxicillin/Clavulanate Potassium 875 mg 06/13/20 12:00 Amoxicillin/Potassium Clav 875 Mg Tablet PO Q12H JOSSUE Aspirin 81 mg 06/08/20 21:00 06/12/20 21:09 Aspirin 81 Mg Tab.Chew PO 81 mg BEDTIME JOSSUE Administration Docusate Sodium 100 mg 06/07/20 21:35 Docusate Sodium 100 Mg Capsule PO DAILY PRN Constipation Doxycycline Hyclate 100 mg 06/13/20 12:00 Doxycycline Hyclate 100 Mg Tablet PO Q12H JOSSUE Enoxaparin Sodium 40 mg 06/07/20 21:35 06/12/20 21:09 Enoxaparin Sodium 40 Mg/0.4 Ml Syringe SUBCUT 40 mg Q24H JOSSUE Administration Insulin Glargine 12 unit 06/09/20 21:00 06/12/20 21:10 Insulin Glargine,Hum.Rec.Anlog 100 Unit/Ml 10 Ml Vial SUBCUT 12 unit BEDTIME [facility] Administration Insulin Human Lispro 0 unit 06/08/20 07:30 06/13/20 08:38 Insulin Lispro 100 Unit/Ml 3 Ml Vial SUBCUT Not Given QIDACHS [facility] Protocol Metformin HCl 1,000 mg 06/13/20 17:00 Metformin Hcl 1,000 Mg Tablet PO BIDWM [facility] Nicotine 14 mg 06/08/20 16:05 06/13/20 07:52 Nicotine 14 Mg Patch.Td24 TRANSDERMA Not Given DAILY [facility] Ondansetron HCl 4 mg 06/07/20 21:35 Ondansetron Hcl 4 Mg/2 Ml Vial IVPUSH Q8H PRN Nausea and Vomiting Oxycodone HCl 5 mg 06/07/20 21:35 Oxycodone Hcl Immed Release 5 Mg Tablet PO Q6H PRN Pain, Severe (Pain Scale 7-10) Pharmacy Consult 1 each 06/07/20 19:22 Consult Rx Perform Med Rec MISCELLANE ONCE PRN Consult order Pharmacy Consult 1 each 06/07/20 21:35 Consult Rx Vancomycin Dosing MISCELLANE DAILY PRN Consult order Sodium Chloride 3 ml 06/08/20 00:00 06/13/20 07:52 0.9 % Sodium Chloride Flush 3 Ml Syringe IVFLUSH 3 ml QSHIFT [facility] Administration Labs CBC & Chem 7: 06/12/20 10:27 06/11/20 05:45 Microbiology Microbiology Results: Microbiology 06/07/20 20:15 Blood - Venous Blood Culture - Final No growth after 5 days. 06/07/20 20:15 Blood - Venous Blood Culture - Final No growth after 5 days. Assessment and Plan (1) Amputation of toe of left foot: Status: Acute (2) PAD (peripheral artery disease): Status: Acute (3) Osteomyelitis: Status: Acute (4) Tobacco use disorder: Status: Acute (5) MRSA (methicillin resistant staph aureus) culture positive: Status: Acute (6) Diabetic foot infection: Problem details: foot infection MRSA,Enterobacter and enterococcus He is unfortunately having cellulitis and worsening foot infection He doesnt have regular transport for HBO He has failed organism directed oral therapy Status: Acute Assessment and Plan: 59-year-old with history of diabetes who presents to the hospital with complaints of worsening left foot wound. Of note patient was treated for this wound in April after being on antibiotics for 2 weeks. # left 5th toe wound,osteomyelitis of left 5th toe and 5th metatarsal head and cellulitis related to diabetes and peripheral vascular disease Cellulitis improved, Status post amputation left 5th toe, postoperative day 2 good pain control dressing done by surgery this a.m. post procedure hematocrit stable, normal WBC. no fever, chills, status post prolong antibiotic treatment treatment in the past, cultures from the same wound in April showed Enterobacter Cloacea complex, MRSA, and Enterococcus faecalis MRI from April 21 showed osteomyelitis Will discontinue iv vancomycin and Levaquin day 6, case discussed with ID she recommend by mouth Augmentin and doxycycline for 2 weeks, blood cultures time 2 showed no growth Patient seen by Dr. Ott and underwent bilateral lower extremity arterial duplex ultrasound that showed no hemodynamically significant arterial stenosis bilaterally. Encourage out of bed to chair, DC home with VNA services for wound care and outpatient surgical follow-up with Dr. Masters. # history of peripheral vascular disease on aspirin and Plavix # DM type 2 blood sugar elevated patient take metformin 500 b.i.d. at home, will increase to 1000 mg b.i.d., added Lantus at bedtime continue diabetic diet and follow blood sugar closely, hemoglobin A1c 8.5 in February suggestive of poor blood sugar control, will start teachings to check blood sugar and administer insulin. # tobacco use disorder on nicotine patch, counseling done # DVT prophylaxis with Lovenox
[2020-06-13] MEDS: Amoxicillin/Potassium Clav 875 MG TABLET PO (12:36)
[2020-06-13] MEDS: Insulin Lispro 100 UNIT/ML 3 ML VIAL SUBCUT ×3 (12:36→22:06)
[2020-06-13] MEDS: Clopidogrel Bisulfate 75 MG TABLET PO (12:45)
[2020-06-13 15:20] VITALS: BP 131/72; PULSE 80; RESP 17; TEMP 36.5; O2SAT 99
[2020-06-13 16:43] LABS: Glucose, Whole Blood 189 mg/dL (60-115)
[2020-06-13] MEDS: metFORMIN HCl 1,000 MG TABLET 1000 MG PO (17:06)
[2020-06-13 19:54] VITALS: BP 134/70; PULSE 77; RESP 20; TEMP 36.1; O2SAT 98
[2020-06-13 20:41] LABS: Glucose, Whole Blood 213 mg/dL (60-115)
[2020-06-13] MEDS: Enoxaparin Sodium 40 MG/0.4 ML SYRINGE SUBCUT (22:06)
[2020-06-13] MEDS: Aspirin 81 MG TAB.CHEW PO (22:06)
[2020-06-13] MEDS: Insulin Glargine,Hum.rec.anlog 100 UNIT/ML 10 ML VIAL 12 UNIT SUBCUT (22:07)
[2020-06-13 23:43] VITALS: BP 133/75; PULSE 84; RESP 18; TEMP 36.1; O2SAT 99
[2020-06-14] MEDS: Amoxicillin/Potassium Clav 875 MG TABLET PO ×2 (00:50→11:51)
[2020-06-14] MEDS: 0.9 % Sodium Chloride Flush 3 ML SYRINGE IVFLUSH ×2 (00:50→07:46)
[2020-06-14 03:45] VITALS: BP 115/57; PULSE 75; RESP 18; TEMP 36.6; O2SAT 98
[2020-06-14 07:20] VITALS: BP 129/70; PULSE 85; RESP 17; TEMP 36.1; O2SAT 100
[2020-06-14] MEDS: metFORMIN HCl 1,000 MG TABLET 1000 MG PO (07:44)
[2020-06-14] MEDS: Clopidogrel Bisulfate 75 MG TABLET PO (07:44)
[2020-06-14 08:20] LABS: Glucose, Whole Blood 128 mg/dL (60-115)
--- NOTE | 2020-06-14 08:32 | P.PNGS_ITS ---
Subjective Subjective Date of Service: 06/14/20 Interval history: S/p amputation of left 5th toe; no new complaints. Physical Exam Vital Signs: Vital Signs: Last Vital Signs Temp 96.9 F 06/14/20 07:20 Pulse 85 06/14/20 07:20 Resp 17 06/14/20 07:20 BP 129/70 06/14/20 07:20 Pulse Ox 100 06/14/20 07:20 Body Mass Index 28.4 Const: General: cooperative, healthy appearing, comfortable and no acute distress Resp: Effort & Inspection: normal respiratory effort Skin: General skin exam: no rashes or lesions noted and turgor normal Extrem: Other: Dressings changed the left foot. Suture line is clean and intact. Kevin drain was removed today. Some minimal bloody discharge noted on dressings. Clean sterile dressings applied. No evidence of abscess or cellulitis. Progress Note: A&P Assessment and plan (1) Amputation of toe of left foot: Status: Acute Assessment and Plan: POD #3 s/p amputation of the left 5th toe. Patient tolerated the procedure well and his wounds are healing appropriately. No evidence of ongoing infection at this time. The drain was removed and sterile dressings applied. If patient is discharged, he should have visiting nurses for daily dressing changes with fluffed gauze followed by leg Samantha dressing to the left foot. He should follow up in my office in approximately 2 weeks for suture removal. Fall Risk Details Current Medications: Current Medications Generic Name Dose Route Start Last Admin Trade Name Freq PRN Reason Stop Dose Admin Acetaminophen 650 mg 06/07/20 21:35 Acetaminophen 325 Mg Tablet PO Q6H PRN Pain, Mild (Pain Scale 1-3) Amoxicillin/Clavulanate Potassium 875 mg 06/13/20 12:00 06/14/20 00:50 Amoxicillin/Potassium Clav 875 Mg Tablet PO 875 mg Q12H JOSSUE Administration Aspirin 81 mg 06/08/20 21:00 06/13/20 22:06 Aspirin 81 Mg Tab.Chew PO 81 mg BEDTIME JOSSUE Administration Clopidogrel Bisulfate 75 mg 06/13/20 12:40 06/14/20 07:44 Clopidogrel Bisulfate 75 Mg Tablet PO 75 mg DAILY JOSSUE Administration Docusate Sodium 100 mg 06/07/20 21:35 Docusate Sodium 100 Mg Capsule PO DAILY PRN Constipation Doxycycline Hyclate 100 mg 06/13/20 12:00 06/14/20 00:50 Doxycycline Hyclate 100 Mg Tablet PO 100 mg Q12H JOSSUE Administration Enoxaparin Sodium 40 mg 06/07/20 21:35 06/13/20 22:06 Enoxaparin Sodium 40 Mg/0.4 Ml Syringe SUBCUT 40 mg Q24H JOSSUE Administration Insulin Glargine 12 unit 06/09/20 21:00 06/13/20 22:07 Insulin Glargine,Hum.Rec.Anlog 100 Unit/Ml 10 Ml Vial SUBCUT 12 unit BEDTIME JOSSUE Administration Insulin Human Lispro 0 unit 06/08/20 07:30 06/14/20 07:44 Insulin Lispro 100 Unit/Ml 3 Ml Vial SUBCUT Not Given QIDACHS [facility] Protocol Metformin HCl 1,000 mg 06/13/20 17:00 06/14/20 07:44 Metformin Hcl 1,000 Mg Tablet PO 1,000 mg BIDWM JOSSUE Administration Nicotine 14 mg 06/08/20 16:05 06/14/20 07:44 Nicotine 14 Mg Patch.Td24 TRANSDERMA Not Given DAILY [facility] Ondansetron HCl 4 mg 06/07/20 21:35 Ondansetron Hcl 4 Mg/2 Ml Vial IVPUSH Q8H PRN Nausea and Vomiting Oxycodone HCl 5 mg 06/07/20 21:35 Oxycodone Hcl Immed Release 5 Mg Tablet PO Q6H PRN Pain, Severe (Pain Scale 7-10) Pharmacy Consult 1 each 06/07/20 19:22 Consult Rx Perform Med Rec MISCELLANE ONCE PRN Consult order Pharmacy Consult 1 each 06/07/20 21:35 Consult Rx Vancomycin Dosing MISCELLANE DAILY PRN Consult order Sodium Chloride 3 ml 06/08/20 00:00 06/14/20 07:46 0.9 % Sodium Chloride Flush 3 Ml Syringe IVFLUSH 3 ml QSHIFT [facility] Administration Time Spent With Patient Time: Total time spent is greater than 50% in coordination of care (as documented) at patient's floor/unit and/or counseling patient: Time with patient: 15 - 24 minutes
[2020-06-14 11:22] LABS: Glucose, Whole Blood 138 mg/dL (60-115)
[2020-06-14 11:56] VITALS: BP 149/68; PULSE 94; RESP 18; TEMP 36.6; O2SAT 100
--- NOTE | 2020-06-14 12:07 | P.DS_ITS ---
DS: Providers Provider Date of Service: 06/24/20 Date of admission: 06/07/20 21:35 Primary care physician: MIRA SOTO [employer] Consults: 06/07/20 21:35 Consult to Infectious Diseases Routine Consulting Provider: Stefanie Wadsworth Reason for consultation: Osteomyelitis Has provider been notified: No 06/08/20 10:05 Consult to Vascular Surgery Routine Consulting Provider: Celestine Ott Reason for consultation: left foot wound Has provider been notified: Yes DS: Diagnosis Discharge Diagnosis (1) Amputation of toe of left foot: Status: Acute DS: Medications Discharge Medications Home Medications: Home Medications Medication Instructions Recorded Confirmed clopidogrel 75 mg tablet 75 mg PO DAILY 05/15/20 06/07/20 aspirin 81 mg PO BEDTIME 06/07/20 06/07/20 metformin 500 mg PO BID 06/07/20 06/07/20 Previous Rx's Medication Instructions Recorded amoxicillin-pot clavulanate 875 mg PO Q12H #20 tab 06/14/20 blood sugar diagnostic #100 ea 06/14/20 doxycycline hyclate 100 mg PO Q12H #20 tab 06/14/20 insulin glargine [Lantus U-100 12 unit SUBCUT BEDTIME 30 Days #30 06/14/20 Insulin] ml insulin lispro See Protocol SUBCUT USEASDIRECTD 06/14/20 #10 ml insulin lispro [Humalog U-100 See Protocol SUBCUT QIDACHS 30 06/14/20 Insulin] Days ml insulin syr/ndl U100 half mariann #100 ea 06/14/20 nicotine 1 patch TRANSDERMAL DAILY #14 ea 06/14/20 DS: Summary Hospital Course Hospital Course: HPI 59-year-old male with past medical history of diabetes and left foot wound treated in April by Infectious Disease on outpatient basis who presents to the hospital complaining of worsening of the same wound. Patient reports that he went [facility], he was evaluated and was asked to come to the hospital for further evaluation. Per patient he has been struggling left foot wound for the past 3 months, he had an MRI done in the beginning of April which showed osteomyelitis, he saw infectious disease specialist 1st week of April, was prescribed antibiotics for 2 weeks which he completed, and initially felt better somewhat but reports that for the past 10 days his foot has been more painful, swollen, warm, and has redness. He also reports serosanguineous fluid coming out of the wound. Pain is sh ooting, 7/10, intermittent, radiating to the ankle and mcrae. He denies any fever or chills, no headache, no change in vision, no chest pain, no shortness of breath, no abdominal pain nausea or vomiting, no diarrhea constipation. No urinary symptoms. On arrival to the ED hemodynamically stable with no significant abnormal vitals. Labs are significant for WBC count of 8.2, hemoglobin of 12.7, hematocrit 36.7, sodium of 134, potassium 4.4, BUN of 14, creatinine of 0.84, CRP of 3.45, ESR pending X-ray of the left foot shows loss of the distal 5th metatarsal and adjacent phalanx. Consistent with osteomyelitis Hospital course 59-year-old male admitted with left 5th toe osteomyelitis and cellulitis related to diabetes and peripheral vascular disease, patient was started on vancomycin and Levaquin, general surgery was consulted patient underwent amputation of left 5th toe, blood cultures remain negative, patient was stable id recommended p.o. Augmentin and doxycycline on discharge, patient was stable discharged home on p.o. antibiotic and visiting nurse for wound care, for poorly controlled diabetes patient was started on insulin blood glucose improved, patient was discharged on Lantus and sliding scale insulin. Time Spent with Patient Time attestation: Total time spent providing and/or coordinating discharge services: Discharge coordination time: Greater than 30 minutes Physical Exam Vital Signs: Vital Signs: Last Vital Signs Temp 97.9 F 06/14/20 11:56 Pulse 94 06/14/20 11:56 Resp 18 06/14/20 11:56 BP 149/68 H 06/14/20 11:56 Pulse Ox 100 06/14/20 11:56 Body Mass Index 28.4 DS: Data Data Completed and Pending Completed studies during hospitalization [Text1]: Pending at discharge 06/11/20 11:45 Surgical [PTH] Routine Labs on day of discharge: Laboratory Tests 06/07/20 06/07/20 06/07/20 20:15 20:15 20:16 WBC 8.2 RBC 3.78 L Hgb 12.7 L Hct 36.7 L MCV 97.1 MCH 33.6 H MCHC 34.6 RDW 15.5 Plt Count 193 D MPV 10.0 Immature Gran % (Auto) 0.4 Neut % (Auto) 67.6 Lymph % (Auto) 20.1 [place] % (Auto) 11.0 Eos % (Auto) 0.7 Baso % (Auto) 0.2 Lymph # (Auto) 1.7 [place] # (Auto) 0.9 Eos # (Auto) 0.1 Baso # (Auto) 0.0 Abs Immat Gran (auto) 0.03 Absolute Neuts (auto) 5.5 Absolute Nucleated RBC 0.000 Nucleated RBC % (auto) 0.0 ESR 21 H Sodium Potassium Chloride Carbon Dioxide Anion Gap BUN Creatinine Estim Creat Clear Calc Estimated GFR POC Glucose Random Glucose Lactic Acid 0.8 Calcium C-Reactive Protein Vancomycin Trough COVID-19 (SAM) COVID-19 Clin Com 06/07/20 06/07/20 06/07/20 20:16 20:16 21:56 WBC RBC Hgb Hct MCV MCH MCHC RDW Plt Count MPV Immature Gran % (Auto) Neut % (Auto) Lymph % (Auto) [place] % (Auto) Eos % (Auto) Baso % (Auto) Lymph # (Auto) [place] # (Auto) Eos # (Auto) Baso # (Auto) Abs Immat Gran (auto) Absolute Neuts (auto) Absolute Nucleated RBC Nucleated RBC % (auto) ESR Sodium 134 L Potassium 4.4 Chloride 98 Carbon Dioxide 28 Anion Gap 12 BUN 14 D Creatinine 0.84 Estim Creat Clear Calc TNP Estimated GFR > 60 POC Glucose 219 H Random Glucose 203 H Lactic Acid Calcium 8.4 C-Reactive Protein 3.45 H Vancomycin Trough COVID-19 (SAM) Negative COVID-19 Clin Com See Note 06/08/20 06/08/20 06/08/20 04:35 04:35 07:22 WBC 7.0 RBC 3.44 L Hgb 11.6 L Hct 33.5 L MCV 97.4 MCH 33.7 H MCHC 34.6 RDW 15.5 Plt Count 184 MPV 10.5 Immature Gran % (Auto) 0.3 Neut % (Auto) 60.7 Lymph % (Auto) 25.8 [place] % (Auto) 11.2 H Eos % (Auto) 1.4 Baso % (Auto) 0.6 Lymph # (Auto) 1.8 [place] # (Auto) 0.8 Eos # (Auto) 0.1 Baso # (Auto) 0.0 Abs Immat Gran (auto) 0.02 Absolute Neuts (auto) 4.2 Absolute Nucleated RBC 0.000 Nucleated RBC % (auto) 0.0 ESR Sodium 136 Potassium 4.0 Chloride 103 Carbon Dioxide 24 Anion Gap 13 BUN 10 Creatinine 0.70 Estim Creat Clear Calc TNP Estimated GFR > 60 POC Glucose 194 H Random Glucose 158 H Lactic Acid Calcium 7.8 L D C-Reactive Protein Vancomycin Trough COVID-19 (SAM) COVID-19 [employer] 06/08/20 06/08/20 06/08/20 11:39 16:27 20:20 WBC RBC Hgb Hct MCV MCH MCHC RDW Plt Count MPV Immature Gran % (Auto) Neut % (Auto) Lymph % (Auto) [place] % (Auto) Eos % (Auto) Baso % (Auto) Lymph # (Auto) [place] # (Auto) Eos # (Auto) Baso # (Auto) Abs Immat Gran (auto) Absolute Neuts (auto) Absolute Nucleated RBC Nucleated RBC % (auto) ESR Sodium Potassium Chloride Carbon Dioxide Anion Gap BUN Creatinine Estim Creat Clear Calc Estimated GFR POC Glucose 215 H 130 H 275 H Random Glucose Lactic Acid Calcium C-Reactive Protein Vancomycin Trough COVID-19 (SAM) COVID-19 [employer] 06/09/20 06/09/20 06/09/20 07:35 09:58 11:16 WBC RBC Hgb Hct MCV MCH MCHC RDW Plt Count MPV Immature Gran % (Auto) Neut % (Auto) Lymph % (Auto) [place] % (Auto) Eos % (Auto) Baso % (Auto) Lymph # (Auto) [place] # (Auto) Eos # (Auto) Baso # (Auto) Abs Immat Gran (auto) Absolute Neuts (auto) Absolute Nucleated RBC Nucleated RBC % (auto) ESR Sodium Potassium Chloride Carbon Dioxide Anion Gap BUN Creatinine Estim Creat Clear Calc Estimated GFR POC Glucose 188 H 289 H Random Glucose Lactic Acid Calcium C-Reactive Protein Vancomycin Trough 7.2 L COVID-19 (SAM) COVID-19 [employer] 06/09/20 06/09/20 06/10/20 16:47 20:25 06:58 WBC RBC Hgb Hct MCV MCH MCHC RDW Plt Count MPV Immature Gran % (Auto) Neut % (Auto) Lymph % (Auto) [place] % (Auto) Eos % (Auto) Baso % (Auto) Lymph # (Auto) [place] # (Auto) Eos # (Auto) Baso # (Auto) Abs Immat Gran (auto) Absolute Neuts (auto) Absolute Nucleated RBC Nucleated RBC % (auto) ESR Sodium 138 Potassium 4.3 Chloride 103 Carbon Dioxide 27 Anion Gap 12 BUN 8 L Creatinine 0.70 Estim Creat Clear Calc 132.0 Estimated GFR > 60 POC Glucose 204 H 215 H Random Glucose 130 H Lactic Acid Calcium 8.1 L C-Reactive Protein Vancomycin Trough COVID-19 (SAM) COVID-19 [employer] 06/10/20 06/10/20 06/10/20 07:09 11:56 16:02 WBC RBC Hgb Hct MCV MCH MCHC RDW Plt Count MPV Immature Gran % (Auto) Neut % (Auto) Lymph % (Auto) [place] % (Auto) Eos % (Auto) Baso % (Auto) Lymph # (Auto) [place] # (Auto) Eos # (Auto) Baso # (Auto) Abs Immat Gran (auto) Absolute Neuts (auto) Absolute Nucleated RBC Nucleated RBC % (auto) ESR Sodium Potassium Chloride Carbon Dioxide Anion Gap BUN Creatinine Estim Creat Clear Calc Estimated GFR POC Glucose 144 H 215 H 246 H Random Glucose Lactic Acid Calcium C-Reactive Protein Vancomycin Trough COVID-19 (SAM) COVID-19 [employer] 06/10/20 06/10/20 06/11/20 20:18 22:33 05:45 WBC RBC Hgb Hct MCV MCH MCHC RDW Plt Count MPV Immature Gran % (Auto) Neut % (Auto) Lymph % (Auto) [place] % (Auto) Eos % (Auto) Baso % (Auto) Lymph # (Auto) [place] # (Auto) Eos # (Auto) Baso # (Auto) Abs Immat Gran (auto) Absolute Neuts (auto) Absolute Nucleated RBC Nucleated RBC % (auto) ESR Sodium 139 Potassium 4.8 Chloride 104 Carbon Dioxide 23 Anion Gap 17 BUN 9 Creatinine 0.71 Estim Creat Clear Calc 130.1 Estimated GFR > 60 POC Glucose 287 H Random Glucose 126 H Lactic Acid Calcium 8.5 C-Reactive Protein Vancomycin Trough 12.2 COVID-19 (SAM) COVID-19 Clin [employer] 06/11/20 06/11/20 06/11/20 07:22 10:27 16:46 WBC RBC Hgb Hct MCV MCH MCHC RDW Plt Count MPV Immature Gran % (Auto) Neut % (Auto) Lymph % (Auto) [place] % (Auto) Eos % (Auto) Baso % (Auto) Lymph # (Auto) [place] # (Auto) Eos # (Auto) Baso # (Auto) Abs Immat Gran (auto) Absolute Neuts (auto) Absolute Nucleated RBC Nucleated RBC % (auto) ESR Sodium Potassium Chloride Carbon Dioxide Anion Gap BUN Creatinine Estim Creat Clear Calc Estimated GFR POC Glucose 174 H 145 H 240 H Random Glucose Lactic Acid Calcium C-Reactive Protein Vancomycin Trough COVID-19 (SAM) COVID-19 [employer] 06/11/20 06/12/20 06/12/20 20:48 07:19 10:27 WBC RBC Hgb Hct MCV MCH MCHC RDW Plt Count MPV Immature Gran % (Auto) Neut % (Auto) Lymph % (Auto) [place] % (Auto) Eos % (Auto) Baso % (Auto) Lymph # (Auto) [place] # (Auto) Eos # (Auto) Baso # (Auto) Abs Immat Gran (auto) Absolute Neuts (auto) Absolute Nucleated RBC Nucleated RBC % (auto) ESR Sodium Potassium Chloride Carbon Dioxide Anion Gap BUN Creatinine Estim Creat Clear Calc Estimated GFR POC Glucose 288 H 170 H Random Glucose Lactic Acid Calcium C-Reactive Protein Vancomycin Trough 9.3 L COVID-19 (SAM) COVID-[employer] 06/12/20 06/12/20 06/12/20 10:27 11:13 16:11 WBC 7.4 RBC 3.55 L Hgb 11.7 L Hct 34.5 L MCV 97.2 MCH 33.0 MCHC 33.9 RDW 14.4 Plt Count 252 D MPV 10.2 Immature Gran % (Auto) 0.5 H Neut % (Auto) 67.8 Lymph % (Auto) 18.0 L [place] % (Auto) 11.2 H Eos % (Auto) 2.0 Baso % (Auto) 0.5 Lymph # (Auto) 1.3 [place] # (Auto) 0.8 Eos # (Auto) 0.2 Baso # (Auto) 0.0 Abs Immat Gran (auto) 0.04 H Absolute Neuts (auto) 5.0 Absolute Nucleated RBC 0.000 Nucleated RBC % (auto) 0.0 ESR Sodium Potassium Chloride Carbon Dioxide Anion Gap BUN Creatinine Estim Creat Clear Calc Estimated GFR POC Glucose 182 H 215 H Random Glucose Lactic Acid Calcium C-Reactive Protein Vancomycin Trough COVID-19 (SAM) COVID-19 Clin Com 06/12/20 06/13/20 06/13/20 21:02 07:31 12:02 WBC RBC Hgb Hct MCV MCH MCHC RDW Plt Count MPV Immature Gran % (Auto) Neut % (Auto) Lymph % (Auto) [place] % (Auto) Eos % (Auto) Baso % (Auto) Lymph # (Auto) [place] # (Auto) Eos # (Auto) Baso # (Auto) Abs Immat Gran (auto) Absolute Neuts (auto) Absolute Nucleated RBC Nucleated RBC % (auto) ESR Sodium Potassium Chloride Carbon Dioxide Anion Gap BUN Creatinine Estim Creat Clear Calc Estimated GFR POC Glucose 198 H 171 H 249 H Random Glucose Lactic Acid Calcium C-Reactive Protein Vancomycin Trough COVID-19 (SAM) COVID-19 Clin Com 06/13/20 06/13/20 06/14/20 16:26 20:37 07:22 WBC RBC Hgb Hct MCV MCH MCHC RDW Plt Count MPV Immature Gran % (Auto) Neut % (Auto) Lymph % (Auto) [place] % (Auto) Eos % (Auto) Baso % (Auto) Lymph # (Auto) [place] # (Auto) Eos # (Auto) Baso # (Auto) Abs Immat Gran (auto) Absolute Neuts (auto) Absolute Nucleated RBC Nucleated RBC % (auto) ESR Sodium Potassium Chloride Carbon Dioxide Anion Gap BUN Creatinine Estim Creat Clear Calc Estimated GFR POC Glucose 189 H 213 H 128 H Random Glucose Lactic Acid Calcium C-Reactive Protein Vancomycin Trough COVID-19 (SAM) COVID-19 Clin Com 06/14/20 11:16 WBC RBC Hgb Hct MCV MCH MCHC RDW Plt Count MPV Immature Gran % (Auto) Neut % (Auto) Lymph % (Auto) [place] % (Auto) Eos % (Auto) Baso % (Auto) Lymph # (Auto) [place] # (Auto) Eos # (Auto) Baso # (Auto) Abs Immat Gran (auto) Absolute Neuts (auto) Absolute Nucleated RBC Nucleated RBC % (auto) ESR Sodium Potassium Chloride Carbon Dioxide Anion Gap BUN Creatinine Estim Creat Clear Calc Estimated GFR POC Glucose 138 H Random Glucose Lactic Acid Calcium C-Reactive Protein Vancomycin Trough COVID-19 (SAM) COVID-19 Clin Com Discharge Plan Discharge Anticipated Discharge Date/Time: 06/14/20 11:51 Patient Disposition: Home Health Service Referrals: [facility] [Outside] (sn[facility] for teaching, wound/surgical site care and medication reconcilliation. PLEASE CALL ABOVE NUMBER IF YOU HAVE NOT HEARD ANYTHING BY NOON ON 06/15/20 ) Mira Soto, [employer]ATION MANAGER [Primary Care Provider] - Discharge Medications: New Lantus U-100 Insulin 100 unit/mL Solution 12 unit subcut BEDTIME 30 Days Qty: 30 RF: 0 insulin lispro [Humalog U-100 Insulin] 100 unit/mL Solution See Protocol unit subcut QIDACHS 30 Days RF: 0 doxycycline hyclate 100 mg Tablet 100 mg PO Q12H Qty: 20 RF: 0 amoxicillin-pot clavulanate 875-125 mg Tablet 875 mg PO Q12H Qty: 20 RF: 0 nicotine 14 mg/24 hr patch 24 hour 1 patch transdermal DAILY Qty: 14 RF: 0 (DME) insulin syr/ndl U100 half mariann 0.3 mL 29 gauge x 1/2 syringe See Rx Instructions .ROUTE .MEDSUPPLY Qty: 100 RF: 0 (DME) blood sugar diagnostic Strip See Rx Instructions .ROUTE .MEDSUPPLY Qty: 100 RF: 0 insulin lispro 100 unit/mL solution See Protocol sliding scale dose subcut USEASDIRECTD Qty: 10 RF: 0 Continued metformin 500 mg Tablet 500 mg PO BID RF: 0 aspirin 81 mg Tablet,Chewable 81 mg PO BEDTIME RF: 0 clopidogrel 75 mg tablet 75 mg PO DAILY RF: 0 Discharge Orders: Discharge Order (Routine); Ordered 06/14/20 Ordered By: Guy Barboza Diet: diabetic diet Activity on Discharge: As tolerated Stand Alone Forms: Patient Portal Discharge page Care Plan Goals: diabetic foot ulcer Plan of Treatment: po antibiotics Discharge Date/Time: 06/14/20 13:54
--- NOTE | 2020-06-14 13:08 | W.MHC.F2F ---
Service Date Service Date: 06/14/20 Encounter Date of encounter: 06/14/20 Reasons for Services Signs and symptoms assessed: osteomyelitis status post amputation Reason for senior care: wound care, diabetic teaching and medication management Homebound: Leaving the home is medically contraindicated at this time without the asist of a device and/or another person due th the listed conditions above and below. Certification: Based on the above findings, I certify that this patient is confined to the home and needs intermittent senior care care, physical therapy and/or speech therapy, or continues to need occupational therapy. The patient is under my care, and I have initiated the establishment of the plan of care. The patient will be followed by a physician who will periodically review the plan of care.
== END 2020-06-14 13:54 | disposition home health service (06) | DRG 617 ==
LOC: HO.ED 21:39 → HO.EDOVER 21:53 → HO.S3 22:07
PROVIDERS: Hospitalist; Nurse Practitioner Family; Surgery; Admitting Provider Internal Medicine; Emergency Provider Emergency Medicine; PCP Nurse Practitioner Adult Health; Visit Provider Internal Medicine
PROC: 0Y6Y0Z0 Detachment at Left 5th Toe, Complete, Open Approach (ICD-10-PCS; principal; 2020-06-11 12:15)
DX: E11.69 Type 2 diabetes mellitus with other specified complication (principal); L03.116 Cellulitis of left lower limb; M86.9 Osteomyelitis, unspecified; E11.621 Type 2 diabetes mellitus with foot ulcer; E11.51 Type 2 diabetes mellitus with diabetic peripheral angiopathy without gangrene; L97.529 Non-pressure chronic ulcer of other part of left foot with unspecified severity; B95.62 Methicillin resistant Staphylococcus aureus infection as the cause of diseases classified elsewhere; B95.2 Enterococcus as the cause of diseases classified elsewhere; F17.210 Nicotine dependence, cigarettes, uncomplicated; Z20.822 Contact with and (suspected) exposure to COVID-19; Z71.6 Tobacco abuse counseling; Z79.4 Long term (current) use of insulin; Z79.02 Long term (current) use of antithrombotics/antiplatelets; Z79.82 Long term (current) use of aspirin; Z79.899 Other long term (current) drug therapy
CPT/HCPCS: 36415; 73630; 80048; 80202; 82947; 83605; 85025; 85652; 86140; 87040; 87635; 88305; 88311; 93923; 93925; 96365; 96366; 99024; 99285; J0690; J1650; J1956; J2250; J3010; J3370

== ENCOUNTER → 2020-06-26 10:01 | Outpatient (BNVA) | payer OTHER, SELFPAY | PROVIDERS: PCP Nurse Practitioner Adult Health; Visit Provider Surgery ==

== ENCOUNTER → 2020-07-10 10:54 | Outpatient (BNVA) | payer OTHER, SELFPAY | PROVIDERS: PCP Nurse Practitioner Adult Health; Visit Provider Surgery ==

== ENCOUNTER → 2020-07-24 10:52 | Outpatient (BNVA) | payer OTHER, SELFPAY | PROVIDERS: Visit Provider Surgery ==

== ENCOUNTER → 2020-08-07 13:13 | Outpatient (BNVA) | payer OTHER, SELFPAY | PROVIDERS: Visit Provider Surgery ==